=== PATIENT | male | born 1955 | race Two or more races ===

== ENCOUNTER 2018-04-12 11:13 | Inpatient (IN) | payer OTHER ==
[2018-04-12 11:42] VITALS: BMI 24.0
--- NOTE | 2018-04-12 14:11 | HP ---
CIWA Score - CIWA Score Nausea/Vomitin-Int. Nausea w/Dry Heave Muscle Tremors: 3 Anxiety: 5 Agitation: 3 Paroxysmal Sweats: 1-Minimal Palms Moist Orientation: 0-Oriented Tacttile Disturbances: 3-Moderate Itch/Numb/Burn (TOES AND FINGERS) Auditory Disturbances: 0-None Visual Disturbances: 0-None Headache: 1-Very Mild CIWA-Ar Total Score: 20 Admission ROS BHS - HPI Chief Complaint: ALCOHOL WITHDRAWAL SX Allergies/Adverse Reactions: Allergies Allergy/AdvReac Type Severity Reaction Status Date / Time No Known Allergies Allergy Verified 04/12/18 12:33 History of Present Illness: 62 Y/O MALE WITH A HX OF ALCOHOL DEPENDENCE AND RECENT USE OF K2 SEEKING DETOX TX. PT REPORTS HE WAS DISCHARGE FROM [facility] TODAY. REPORTS HIS EXECUTIVE [facility]ITY [facility]ING IN THE SKILLED NURSING CALLED AMBULANCE YESTERDAY BECAUSE HE WAS DRINKING AND USING K2 AND WAS "WOBBLY-OUT OF IT". Exam Limitations: No Limitations - Ebola screening Have you traveled outside of the country in the last 21 days: No Have you had contact with anyone from an Ebola affected area: No Have you been sick,other than usual withdrawal symptoms: No Do you have a fever: No - Review of Systems Constitutional: Chills, Loss of Appetite, Night Sweats, Changes in sleep, Unintentional Wgt. Loss EENT: reports: Blurred Vision (WEARS GLASSES), Tearing, Nose Congestion, Dental Problems (MISSING TEETH) Respiratory: reports: SOB with Exertion Cardiac: reports: Lightheadedness, Chest Tightness GI: reports: Nausea, Poor Appetite, Vomiting, Indigestion (PUD HX DUE TO DRINKING) : reports: No Symptoms Reported Musculoskeletal: reports: Back Pain (HX LAMINECTOMY) Integumentary: reports: No Symptoms Reported Neuro: reports: Headache, Numbness, Tingling, Tremors, Unsteady Gait, Dizziness Endocrine: reports: No Symptoms Reported Hematology: reports: No Symptoms Reported Psychiatric: reports: Orientated x3, Anxious Other Systems: Reviewed and Negative Patient History - Patient Medical History Hx Anemia: No Hx Asthma: No Hx Chronic Obstructive Pulmonary Disease (COPD): No Hx Cancer: No Hx Cardiac Disorders: No Hx Congestive Heart Failure: No Hx Hypertension: Yes (ON AMLODIPINE ) Hx Hypercholesterolemia: No Hx Pacemaker: No HX Cerebrovascular Accident: No Hx Seizures: No Hx Dementia: No Hx Diabetes: No Hx Gastrointestinal Disorders: Yes (acid reflux-ON MED BUT FORGOT) Hx Liver Disease: No Hx Genitourinary Disorders: No Hx Sexually Transmitted Disorders: No (DENIES) Hx Renal Disease (ESRD): No Hx Thyroid Disease: No Hx Human Immunodeficiency Virus (HIV): No (NEGATIVE HX) Hx Hepatitis C: No (DENIES) Hx Depression: Yes (ON MED) Hx Suicide Attempt: No Hx Bipolar Disorder: Yes Hx Schizophrenia: No - Patient Surgical History Past Surgical History: Yes Hx Neurologic Surgery: No Hx Cataract Extraction: No Hx Cardiac Surgery: No Hx Lung Surgery: No Hx Breast Surgery: No Hx Breast Biopsy: No Hx Abdominal Surgery: No Hx Appendectomy: No Hx Cholecystectomy: No Hx Genitourinary Surgery: No Hx Orthopedic Surgery: Yes (laminectomy in 1995) Anesthesia Reaction: No - PPD History Previous Implant?: Yes Documented Results: Negative w/proof Implanted On Prior R Admission?: Yes Date: 11/03/15 Results: 0 mm PPD to be Administered?: Yes - Reproductive History Patient is a Female of Child Bearing Age (11 -55 yrs old): No (MALE) - Smoking Cessation Smoking history: Current every day smoker Have you smoked in the past 12 months: Yes Aproximately how many cigarettes per day: 20 Hx Chewing Tobacco Use: No Initiated information on smoking cessation: Yes 'Breaking Loose' booklet given: 04/12/18 - Substance & Tx. History Hx Alcohol Use: Yes (VODKA) Hx Substance Use: Yes (PCP) Substance Use Type: Alcohol Hx Substance Use Treatment: Yes (LAST TX AT [facility]) - Substances Abused Alcohol-vodka Route: Oral Frequency: Daily Amount used: 1 pt. Age of first use: 20 Date of Last Use: 04/12/18 K2 Route: Smoking Frequency: 1-3 times last 30 days Amount used: $2 Age of first use: 62 Date of Last Use: 04/08/18 Family Disease History - Family Disease History Family Disease History: Diabetes: Mother, Sister, Heart Disease: Father ( SEIZURES,ALCOHOLISM), Other: Father Admission Physical Exam BHS - Vital Signs Vital Signs: Vital Signs - 24 hr 04/12/18 11:32 Temperature 97.2 F L Pulse Rate 118 H Respiratory 18 Rate Blood Pressure 147/89 - Physical General Appearance: Yes: Moderate Distress, Irritable, Anxious HEENTM: Yes: EOMI, Normocephalic, MIKE, Pharynx Normal Respiratory: Yes: Chest Non-Tender, Lungs Clear, Normal Breath Sounds, No Respiratory Distress Neck: Yes: No masses,lesions,Nodules, Supple, Trachea in good position Breast: Yes: Breast Exam Deferred Cardiology: Yes: Regular Rhythm, Regular Rate, S1, S2 Abdominal: Yes: Normal Bowel Sounds, Non Tender, Flat, Soft Genitourinary: Yes: Other (N/C) Back: Yes: Within Normal Limits Musculoskeletal: Yes: full range of Motion, Gait Steady Extremities: Yes: Normal Range of Motion, Non-Tender Neurological: Yes: brush polisher II-XII NML intact, Fully Oriented, Alert, Motor Strength 5/5 Integumentary: Yes: Dry, Warm Lymphatic: Yes: Within Normal Limits - Diagnostic (1) Alcohol dependence with uncomplicated withdrawal Current Visit: Yes Status: Acute (2) Nicotine dependence Current Visit: Yes Status: Acute Qualifiers: Nicotine product type: cigarettes Substance use status: in withdrawal Qualified Code(s): F17.213 - Nicotine dependence, cigarettes, with withdrawal (3) GERD (gastroesophageal reflux disease) Current Visit: Yes Status: Chronic Qualifiers: Esophagitis presence: esophagitis presence not specified Qualified Code(s) : K21.9 - Gastro-esophageal reflux disease without esophagitis (4) Hypertension Current Visit: Yes Status: Chronic Qualifiers: Hypertension type: essential hypertension Qualified Code(s): I10 - Essential (primary) hypertension Cleared for Admission S - Detox or Rehab [facility] Level of Care: Medically Managed Detox Regimen/Protocol: Librium [facility] Breath Alcohol Content Breath Alcohol Content: 0 Urine Drug Screen - Results Drug Screen Negative: No Urine Drug Screen Results: MTD-Methadone, TCA-Tricyclic Antidepress, OXY- Oxycodone
[2018-04-12] MEDS ORDERED: NICOTINE POLACRILEX 4 MG GUM BUC PRN (14:24)
[2018-04-12] MEDS ORDERED: MAGNESIUM CITRATE 300 ML BOTTLE PO PRN (14:24)
[2018-04-12] MEDS ORDERED: P-EPHED 60MG/TRIPROLIDI 2.5MG TABLET PO PRN (14:24)
[2018-04-12] MEDS ORDERED: MENTHOL/PHENOL 1 EACH UD MM PRN (14:24)
[2018-04-12] MEDS ORDERED: MAGNESIUM HYDROX 2400MG/30ML ORAL SUSPENSION 30 ML CUP PO PRN (14:24)
[2018-04-12] MEDS ORDERED: guaiFENesin/D-METHORPHAN HB 10 ML UNIT-DOSE CUPS PO PRN (14:24)
[2018-04-12] MEDS ORDERED: LOPERAMIDE HCL 2 MG CAPSULE PO PRN (14:24)
[2018-04-12] MEDS ORDERED: MAG HYDROX/AL HYDROX/SIMETH 30 ML UNIT-DOSE CUP PO PRN (14:24)
[2018-04-12] MEDS ORDERED: chlordiazePOXIDE HCL 25 MG CAPSULE PO ONE (15:10)
[2018-04-12] MEDS: PANTOPRAZOLE 40 MG TABLET (FP) PO SCH (15:56)
[2018-04-12] MEDS: amLODIPine BESYLATE 5 MG TABLET (FP) PO SCH (15:56)
[2018-04-12] MEDS: SUCRALFATE 1 GM TABLET (FP) PO SCH (15:57)
[2018-04-12] MEDS: FLUTICASONE PROP 0.05% 16 GM NASAL SPRAY NS SCH (15:57)
[2018-04-12] MEDS: NICOTINE 21 MG/24 HOURS TOPICAL PATCH TD SCH (16:01)
[2018-04-12] MEDS: chlordiazePOXIDE HCL 25 MG CAPSULE PO SCH ×2 (17:32→22:24)
[2018-04-12 19:01] LABS: HEMATOCRIT 38.1 % (35.4-49); HEMOGLOBIN 12.7 GM/dL (11.7-16.9); MCH 33.6 pg (25.7-33.7); MCHC 33.4 g/dl (32.0-35.9); MEAN CELL VOLUME 100.7 fl (80-96); MEAN PLT VOLUME 8.3 fl (7.5-11.1); PLATELET COUNT 278 K/MM3 (134-434); RBC 3.79 M/mm3 (4.00-5.60); WHITE BLOOD COUNT 6.4 K/mm3 (4.0-10.0)
[2018-04-12 19:14] LABS: ALBUMIN 3.6 g/dl (3.4-5.0); ANION GAP 14 (8-16); BLOOD UREA NITROGEN 10 mg/dL (7-18); CALCIUM 8.5 mg/dL (8.5-10.1); CHLORIDE 98 mmol/L (98-107); CO2 24 mmol/L (21-32); GLUCOSE,RANDOM 107 mg/dL (74-106); POTASSIUM 3.5 mmol/L (3.5-5.1); SGOT/AST 51 U/L (15-37); SGPT/ALT 29 U/L (12-78); SODIUM 136 mmol/L (136-145)
[2018-04-12 19:23] LABS: ALK PHOS 87 U/L (45-117); BILIRUBIN,TOTAL 1.3 mg/dL (0.2-1.0); CREATININE 0.9 mg/dL (0.7-1.3); TOT PROT 7.4 g/dl (6.4-8.2)
[2018-04-12] MEDS: chlordiazePOXIDE HCL 25 MG CAPSULE PO PRN (19:39)
[2018-04-12] MEDS: THIAMINE HCL 100 MG TABLET (FP) PO SCH (22:24)
[2018-04-12] MEDS: GABAPENTIN 400 MG CAPSULE (FP) PO SCH (22:24)
[2018-04-13] MEDS: chlordiazePOXIDE HCL 25 MG CAPSULE PO SCH ×4 (06:03→22:32)
[2018-04-13] MEDS: GABAPENTIN 400 MG CAPSULE (FP) PO SCH ×3 (06:04→22:32)
[2018-04-13] MEDS: ACETAMINOPHEN 325 MG TABLET (FP) PO PRN (10:05)
[2018-04-13] MEDS: PANTOPRAZOLE 40 MG TABLET (FP) PO SCH (10:07)
[2018-04-13] MEDS: PRENATAL VITAMINS W/ FOLIC ACID TABLET (FP) PO SCH (10:07)
[2018-04-13] MEDS: FLUTICASONE PROP 0.05% 16 GM NASAL SPRAY NS SCH (10:07)
[2018-04-13] MEDS: SUCRALFATE 1 GM TABLET (FP) PO SCH (10:07)
[2018-04-13] MEDS: amLODIPine BESYLATE 5 MG TABLET (FP) PO SCH (10:07)
[2018-04-13] MEDS: NICOTINE 21 MG/24 HOURS TOPICAL PATCH TD SCH (10:07)
--- NOTE | 2018-04-13 11:46 | PN ---
S CIWA - CIWA Score Nausea/Vomitin-No Nausea/No Vomiting Muscle Tremors: 4-Moderate,w/Arms Extend Anxiety: 4-Mod. Anxious/Guarded Agitation: 4-Moderately Restless Paroxysmal Sweats: 1-Minimal Palms Moist Orientation: 0-Oriented Tacttile Disturbances: 3-Moderate Itch/Numb/Burn Auditory Disturbances: 0-None Visual Disturbances: 0-None Headache: 0-None Present CIWA-Ar Total Score: 16 BHS Progress Note (SOAP) Subjective: SLIGHT ANXIETY,SWEATS, TREMORS. ALERT O X 3. OOB AMBULATING WITH STAEDY GAIT. NAD. Objective: 04/13/18 11:43 Vital Signs 04/13/18 04/13/18 06:44 09:13 Temperature 96.8 F L 97.1 F L Pulse Rate 76 109 H Respiratory 18 20 Rate Blood Pressure 118/77 126/91 Laboratory Tests 04/12/18 04/12/18 14:30 14:30 WBC 6.4 D RBC 3.79 L Hgb 12.7 Hct 38.1 MCV 100.7 H MCH 33.6 MCHC 33.4 RDW 14.0 D Plt Count 278 D MPV 8.3 Sodium 136 Potassium 3.5 Chloride 98 Carbon Dioxide 24 Anion Gap 14 BUN 10 D Creatinine 0.9 Creat Clearance w eGFR > 60 Random Glucose 107 H Calcium 8.5 Total Bilirubin 1.3 H D AST 51 H D ALT 29 D Alkaline Phosphatase 87 D Total Protein 7.4 Albumin 3.6 OTHER LABS PENDING Assessment: 04/13/18 11:43 WITHDRAWAL SX Plan: CONTINUE DETOX INCREASE PO FLUIDS
[2018-04-13] MEDS: chlordiazePOXIDE HCL 25 MG CAPSULE PO PRN ×2 (12:37→20:09)
[2018-04-13] MEDS: IBUPROFEN 400 MG TABLET (FP) PO PRN ×2 (12:38→20:10)
--- NOTE | 2018-04-13 12:42 | CONSULT ---
[facility] Psychiatric Consult - Data Date of interview: 04/13/18 Admission source: [facility] Identifying data: Readmission to [facility] for this 62 y/o AA male seeking detox treatment on for alcohol and cannabis (K2) dependence.Patient is single without children,homeless (resides in a nursing home),unemployed and supported on Public Asistance. Substance Abuse History: Confirmed by patient in this session.Details in current [facility] report.Smoking history: Current every day smoker. Have you smoked in the past 12 months: Yes. Aproximately how many cigarettes per day: 20. Hx Chewing Tobacco Use: No. Initiated information on smoking cessation: Yes. ' Breaking Loose' booklet given: 04/12/18. - Substance & Tx. History. Hx Alcohol Use: Yes (VODKA). Hx Substance Use: Yes (PCP). Substance Use Type: Alcohol. Hx Substance Use Treatment: Yes (LAST TX AT [facility]). - Substances Abused. Alcohol-vodka. Route: Oral. Frequency: Daily. Amount used: 1 pt. Age of first use: 20. Date of Last Use: 04/12/18. K2. Route: Smoking. Frequency: 1-3 times last 30 days. Amount used: $2. Age of first use: 62. Date of Last Use: 04/08/18 Medical History: Hypertension,GERD and a history of laminectomy. Psychiatric History: Patient endorses a history of three psychiatric hospitalizations.Known to [facility] in [facility].Diagnosed with Bipolar Disorder.Mr Prasad declares that he has stopped seeing his psychiatrist, Dr Mandujano, [facility]) in the [place].Patient aknowledges total non-adherence to his medications for " a little over a month ".Consisted of trazodone 300 mg/hs + seroquel 800 mg/hs + buspar 15 mg/bid as per self-report.Patient denies history of suicide attempts. Physical/Sexual Abuse/Trauma History: Patient denies. Additional Comment: Urine Drug Screen Results: MTD-Methadone, TCA-Tricyclic Antidepressant, OXY-Oxycodone.Noted. Mental Status Exam - Mental Status Exam Alert and Oriented to: Time, Place, Person Cognitive Function: Good Patient Appearance: Well Groomed (bald,medium height,muscular habitus) Mood: Anxious, Apprehensive Affect: Appropriate, Mood Congruent Patient Behavior: Fatigued, Appropriate, Cooperative Speech Pattern: Clear, Appropriate Voice Loudness: Normal Thought Process: Intact, Goal Oriented Thought Disorder: Not Present Hallucinations: Denies Suicidal Ideation: Denies Homicidal Ideation: Denies Insight/Judgement: Poor Sleep: Poorly, Difficulty falling asleep Appetite: Good Muscle strength/Tone: Normal Gait/Station: Normal Psychiatric Findings - Problem List ([place] 1, 2,3) (1) Alcohol dependence with uncomplicated withdrawal Current Visit: Yes Status: Acute (2) Nicotine dependence Current Visit: Yes Status: Acute Qualifiers: Nicotine product type: cigarettes Substance use status: in withdrawal Qualified Code(s): F17.213 - Nicotine dependence, cigarettes, with withdrawal (3) Bipolar disorder Current Visit: Yes Status: Chronic (4) Insomnia Current Visit: Yes Status: Acute - Initial Treatment Plan Initial Treatment Plan: Psychoeducation.Sleep hygiene.Detoxification.Contact established with the pharmacist at the [facility] at [phone] for verification of medications : last refill for seroquel and buspar were issued in 02/2017.In view of history of non-adherence, will resume medications at much reduced doses, as follows : seroquel 200 mg po hs (to be titrated on a daily basis) + buspar 10 mg po tid + trazodone 100 mg po hs.Side effects/benefits of each drug are discussed with the patient,which includes priapism,metabolic syndrome,oversedation and abnormal involuntary movements.Seroquel will be titrated as clinically indicated.Mr Prasad is in agreement with this plan of care.Observation.
--- NOTE | 2018-04-13 14:33 | EKG ---
Test Reason : Blood Pressure : / mmHG Vent. Rate : 098 BPM Atrial Rate : 098 BPM P-R Int : 152 ms QRS Dur : 100 ms QT Int : 398 ms P-R-T Axes : 068 066 057 degrees QTc Int : 508 ms NORMAL SINUS RHYTHM POSSIBLE LEFT ATRIAL ENLARGEMENT LEFT VENTRICULAR HYPERTROPHY PROLONGED QT ABNORMAL ECG NO PREVIOUS ECGS AVAILABLE Confirmed by CHRISTOPHER GARCIA MD ([id number]) on 04/13/2018 2:33:18 PM Referred By: Confirmed By:CHRISTOPHER GARCIA MD
[2018-04-13 20:45] LABS: URINE APPEARANCE CLEAR; URINE BILIRUBIN NEGATIVE (<2.0 mg/dL); URINE COLOR YELLOW; URINE GLUCOSE (UA) NEGATIVE (NEGATIVE); URINE KETONE 1+ (NEGATIVE); URINE LEUK ESTERASE NEGATIVE (NEGATIVE); URINE NITRITE NEGATIVE (NEGATIVE); URINE PROTEIN NEGATIVE (NEGATIVE); URINE UROBILINOGEN NEGATIVE mg/dL (0.2-1.0)
[2018-04-13] MEDS ORDERED: traZODone HCL 50 MG TABLET (FP) PO SCH (22:00)
[2018-04-13] MEDS: busPIRone HCL 10 MG TABLET (FP) PO SCH (22:32)
[2018-04-13] MEDS: THIAMINE HCL 100 MG TABLET (FP) PO SCH (22:32)
[2018-04-13] MEDS: traZODone HCL 100 MG TABLET (FP) PO SCH (22:32)
[2018-04-13] MEDS: QUEtiapine FUMARATE 200 MG TABLET PO SCH (22:32)
[2018-04-14] MEDS: MELATONIN 5 MG TABLETS PO PRN ×2 (00:24→22:32)
[2018-04-14] MEDS: chlordiazePOXIDE HCL 25 MG CAPSULE PO PRN ×3 (00:24→20:26)
[2018-04-14] MEDS: chlordiazePOXIDE HCL 25 MG CAPSULE PO SCH ×2 (05:16→10:10)
[2018-04-14] MEDS: GABAPENTIN 400 MG CAPSULE (FP) PO SCH ×3 (05:16→22:30)
[2018-04-14] MEDS: ACETAMINOPHEN 325 MG TABLET (FP) PO PRN ×2 (10:01→18:55)
[2018-04-14] MEDS: NICOTINE 21 MG/24 HOURS TOPICAL PATCH TD SCH (10:10)
[2018-04-14] MEDS: amLODIPine BESYLATE 5 MG TABLET (FP) PO SCH (10:10)
[2018-04-14] MEDS: SUCRALFATE 1 GM TABLET (FP) PO SCH (10:10)
[2018-04-14] MEDS: PRENATAL VITAMINS W/ FOLIC ACID TABLET (FP) PO SCH (10:10)
[2018-04-14] MEDS: FLUTICASONE PROP 0.05% 16 GM NASAL SPRAY NS SCH (10:10)
[2018-04-14] MEDS: busPIRone HCL 10 MG TABLET (FP) PO SCH ×2 (10:10→22:30)
[2018-04-14] MEDS: PANTOPRAZOLE 40 MG TABLET (FP) PO SCH (10:10)
[2018-04-14] MEDS ORDERED: ONDANSETRON *ODT* 4 MG TABLET SL PRN (11:33)
[2018-04-14] MEDS: IBUPROFEN 400 MG TABLET (FP) PO PRN ×2 (13:12→23:03)
--- NOTE | 2018-04-14 15:15 | PN ---
S CIWA - CIWA Score Nausea/Vomitin-No Nausea/No Vomiting Muscle Tremors: 3 Anxiety: 4-Mod. Anxious/Guarded Agitation: 4-Moderately Restless Paroxysmal Sweats: 3 Orientation: 2-Disoriented Date<2 days Tacttile Disturbances: 0-None Auditory Disturbances: 0-None Visual Disturbances: 0-None Headache: 3-Moderate CIWA-Ar Total Score: 19 BHS Progress Note (SOAP) Subjective: Tremors, Interrupted Sleep, Sweating, H/A, Body Aches. Objective: PATIENT A & O X 2 (UNCERTAIN ABOUT CURRENT DAY / DATE). PATIENT OBSERVED AMBULATING ON UNIT. NO ACUTE DISTRESS. PATIENT DENIES CHEST PAIN, DIZZINESS, AND SOB. PATIENT REPORTS HISTORY ECG ABNORMALITY; HOWEVER, HE DOES NOT RECALL SPECIFIC DETAILS PERTAINING TO ABNORMALITY. 04/14/18 15:17 Vital Signs Temperature 96.9 F L 04/14/18 13:24 Pulse Rate 82 04/14/18 13:24 Respiratory Rate 20 04/14/18 13:24 Blood Pressure 120/84 04/14/18 13:24 O2 Sat by Pulse Oximetry (%) Laboratory Tests 04/12/18 04/12/18 04/12/18 14:30 14:30 14:30 WBC 6.4 D RBC 3.79 L Hgb 12.7 Hct 38.1 MCV 100.7 H MCH 33.6 MCHC 33.4 RDW 14.0 D Plt Count 278 D MPV 8.3 Sodium 136 Potassium 3.5 Chloride 98 Carbon Dioxide 24 Anion Gap 14 BUN 10 D Creatinine 0.9 Creat Clearance w eGFR > 60 Random Glucose 107 H Calcium 8.5 Total Bilirubin 1.3 H D AST 51 H D ALT 29 D Alkaline Phosphatase 87 D Total Protein 7.4 Albumin 3.6 Urine Color Urine Appearance Urine pH Ur Specific [place] Urine Protein Urine Glucose (UA) Urine Ketones Urine Blood Urine Nitrite Urine Bilirubin Urine Urobilinogen Ur Leukocyte Esterase RPR Titer Nonreactive 04/12/18 16:00 WBC RBC Hgb Hct MCV MCH MCHC RDW Plt Count MPV Sodium Potassium Chloride Carbon Dioxide Anion Gap BUN Creatinine Creat Clearance w eGFR Random Glucose Calcium Total Bilirubin AST ALT Alkaline Phosphatase Total Protein Albumin Urine Color Yellow Urine Appearance Clear Urine pH 6.0 Ur Specific [place] 1.014 Urine Protein Negative Urine Glucose (UA) Negative Urine Ketones 1+ H Urine Blood Negative Urine Nitrite Negative Urine Bilirubin Negative Urine Urobilinogen Negative Ur Leukocyte Esterase Negative RPR Titer LABS NOTED. RESULTS OF ADMISSION AND REPEAT ECG'S NOTED. 04/14/18 15:18 04/14/18 15:20 Assessment: 04/14/18 15:17 WITHDRAWAL SYMPTOMS. Plan: CONTINUE DETOX. PRN ZOFRAN SL FOR NAUSEA.
--- NOTE | 2018-04-14 16:34 | EKG ---
Test Reason : Blood Pressure : / mmHG Vent. Rate : 096 BPM Atrial Rate : 096 BPM P-R Int : 156 ms QRS Dur : 102 ms QT Int : 410 ms P-R-T Axes : 032 066 048 degrees QTc Int : 517 ms SINUS RHYTHM WITH OCCASIONAL PREMATURE VENTRICULAR COMPLEXES LEFT VENTRICULAR HYPERTROPHY WITH REPOLARIZATION ABNORMALITY PROLONGED QT ABNORMAL ECG WHEN COMPARED WITH ECG OF 12-APR-2018 16:33, PREMATURE VENTRICULAR COMPLEXES ARE NOW PRESENT Confirmed by ARMAND VARGAS, MARK ([id number]) on 04/14/2018 4:34:22 PM Referred By: Confirmed By:MARK ACUNA MD
[2018-04-14] MEDS: chlordiazePOXIDE 5 MG CAPSULE PO SCH ×2 (17:28→22:31)
[2018-04-14] MEDS: QUEtiapine FUMARATE 200 MG TABLET PO SCH (22:30)
[2018-04-14] MEDS: traZODone HCL 100 MG TABLET (FP) PO SCH (22:30)
[2018-04-14] MEDS: THIAMINE HCL 100 MG TABLET (FP) PO SCH (22:42)
[2018-04-14] MEDS ORDERED: hydrOXYzine PAMOATE 25 MG CAPSULE (FP) PO ONE (23:00)
[2018-04-15] MEDS: ACETAMINOPHEN 325 MG TABLET (FP) PO PRN ×2 (01:51→14:56)
[2018-04-15] MEDS: chlordiazePOXIDE HCL 25 MG CAPSULE PO PRN (01:53)
[2018-04-15] MEDS: chlordiazePOXIDE 5 MG CAPSULE PO SCH ×2 (06:11→10:03)
[2018-04-15] MEDS: GABAPENTIN 400 MG CAPSULE (FP) PO SCH ×3 (06:11→22:17)
[2018-04-15] MEDS: SUCRALFATE 1 GM TABLET (FP) PO SCH (09:42)
[2018-04-15] MEDS: NICOTINE 21 MG/24 HOURS TOPICAL PATCH TD SCH (09:42)
[2018-04-15] MEDS: FLUTICASONE PROP 0.05% 16 GM NASAL SPRAY NS SCH (09:42)
[2018-04-15] MEDS: CYCLOBENZAPRINE HCL 10 MG TABLET (FP) PO PRN ×2 (09:43→18:23)
[2018-04-15] MEDS: amLODIPine BESYLATE 5 MG TABLET (FP) PO SCH (09:43)
[2018-04-15] MEDS: PRENATAL VITAMINS W/ FOLIC ACID TABLET (FP) PO SCH (09:43)
[2018-04-15] MEDS: busPIRone HCL 10 MG TABLET (FP) PO SCH ×2 (09:43→22:17)
[2018-04-15] MEDS: PANTOPRAZOLE 40 MG TABLET (FP) PO SCH (09:43)
[2018-04-15] MEDS: LIDOCAINE VISCOUS 2% ORAL/TOP 20 ML UNIT-DOSE CUP MM PRN ×2 (09:47→20:34)
[2018-04-15] MEDS ORDERED: QUEtiapine FUMARATE 50 MG TABLET PO ONE (11:05)
--- NOTE | 2018-04-15 16:57 | PN ---
BHS Progress Note (SOAP) Subjective: Stomach Cramping, Nausea, H/A, Body Aches, Interrupted Sleep, Anxious. Objective: PATIENT A & O X 3, OBSERVED AMBULATING ON UNIT. NO ACUTE DISTRESS. 04/15/18 16:56 Vital Signs Temperature 96.2 F L 04/15/18 13:58 Pulse Rate 87 04/15/18 13:58 Respiratory Rate 20 04/15/18 13:58 Blood Pressure 110/75 04/15/18 13:58 O2 Sat by Pulse Oximetry (%) Laboratory Tests 04/12/18 04/12/18 04/12/18 14:30 14:30 14:30 WBC 6.4 D RBC 3.79 L Hgb 12.7 Hct 38.1 MCV 100.7 H MCH 33.6 MCHC 33.4 RDW 14.0 D Plt Count 278 D MPV 8.3 Sodium 136 Potassium 3.5 Chloride 98 Carbon Dioxide 24 Anion Gap 14 BUN 10 D Creatinine 0.9 Creat Clearance w eGFR > 60 Random Glucose 107 H Calcium 8.5 Total Bilirubin 1.3 H D AST 51 H D ALT 29 D Alkaline Phosphatase 87 D Total Protein 7.4 Albumin 3.6 Urine Color Urine Appearance Urine pH Ur Specific [place] Urine Protein Urine Glucose (UA) Urine Ketones Urine Blood Urine Nitrite Urine Bilirubin Urine Urobilinogen Ur Leukocyte Esterase RPR Titer Nonreactive 04/12/18 16:00 WBC RBC Hgb Hct MCV MCH MCHC RDW Plt Count MPV Sodium Potassium Chloride Carbon Dioxide Anion Gap BUN Creatinine Creat Clearance w eGFR Random Glucose Calcium Total Bilirubin AST ALT Alkaline Phosphatase Total Protein Albumin Urine Color Yellow Urine Appearance Clear Urine pH 6.0 Ur Specific [place] 1.014 Urine Protein Negative Urine Glucose (UA) Negative Urine Ketones 1+ H Urine Blood Negative Urine Nitrite Negative Urine Bilirubin Negative Urine Urobilinogen Negative Ur Leukocyte Esterase Negative RPR Titer LABS NOTED. Assessment: 04/15/18 16:57 WITHDRAWAL SYMPTOMS. Plan: CONTINUE DETOX.
[2018-04-15] MEDS: chlordiazePOXIDE HCL 10 MG CAPSULE PO SCH ×2 (17:20→22:17)
--- NOTE | 2018-04-15 17:28 | PN ---
Psychiatric Progress Note Vital Signs: Vital Signs Period Temp Pulse Resp BP Sys/Grimm Pulse Ox Last 24 Hr 96.2 F-98.3 F 71-95 16-20 95-138/68-89 Date of Session: 04/15/18 Chief Complaint:: " I cannot sleep at night.I need more seroquel ". HPI: Day 4 of detoxification for alcohol dependence.Psychiatric re-consult is sought to address patient's request for titration of seroquel to a higher dose.Complains of refractory insomnia. ROS: Unremarkable. Current Medications: Active Medications Generic Name Dose Route Start Last Admin Trade Name Freq PRN Reason Stop Dose Admin Acetaminophen 650 mg 04/12/18 14:24 04/15/18 14:56 Tylenol - PO 650 mg Q4H PRN Administration FEVER Al Hydroxide/Mg Hydroxide 30 ml 04/12/18 14:24 Mylanta Oral Suspension - PO Q6H PRN DYSPEPSIA Amlodipine Besylate 5 mg 04/12/18 15:00 04/15/18 09:43 Norvasc - PO 5 mg DAILY DON Administration Buspirone HCl 10 mg 04/13/18 22:00 04/15/18 09:43 Buspar - PO 10 mg BID DON Administration Chlordiazepoxide HCl 10 mg 04/15/18 17:00 Librium - PO 04/16/18 11:01 [id number] DON Cyclobenzaprine HCl 10 mg 04/15/18 09:27 04/15/18 09:43 Flexeril - PO 10 mg TID PRN Administration MUSCLE SPASMS Eucalyptus/Menthol/Phenol/Sorbitol 1 each 04/12/18 14:24 Cepastat Lozenge - MM Q4H PRN SORE THROAT Fluticasone Propionate 1 spray 04/12/18 15:00 04/15/18 09:42 Flonase - NS 1 spr DAILY DON Administration Gabapentin 800 mg 04/12/18 22:00 04/15/18 13:45 Neurontin - PO 800 mg TID DON Administration Guaifenesin 10 ml 04/12/18 14:24 Robitussin Dm - PO Q6H PRN COUGH Ibuprofen 400 mg 04/12/18 14:24 04/14/18 23:03 Motrin - PO 400 mg Q6H PRN Administration PAIN LEVEL 4-6 Lidocaine HCl 20 ml 04/15/18 09:27 04/15/18 09:47 Xylocaine 2% Viscous Oral - MM 20 ml TID PRN Administration ORAL PAIN/[place]OR[place] Loperamide HCl 4 mg 04/12/18 14:24 Imodium - PO Q6H PRN DIARRHEA Magnesium Citrate 300 ml 04/12/18 14:24 Citroma - PO Q48H PRN CONSTIPATION Magnesium Hydroxide 30 ml 04/12/18 14:24 Milk Of Magnesia - PO DAILY PRN CONSTIPATION Melatonin 5 mg 04/12/18 22:00 04/14/18 22:32 Melatonin PO 5 mg HS PRN Administration INSOMNIA Nicotine 21 mg 04/12/18 15:10 04/15/18 09:42 Nicoderm Patch - TD 21 mg DAILY DON Administration Nicotine Polacrilex 4 mg 04/12/18 14:24 Nicorette Gum - BUC Q2H PRN NICOTINE REPLACEMENT RX Ondansetron HCl 4 mg 04/14/18 11:33 Zofran Odt - SL Q8H PRN NAUSEA AND/OR VOMITING Pantoprazole Sodium 40 mg 04/12/18 15:00 04/15/18 09:43 Protonix - PO 40 mg DAILY DON Administration Multivit/Folic Acid/Iron 1 tab 04/13/18 10:00 04/15/18 09:43 Vitamins (Sjr) - PO 1 tab DAILY DON Administration Pseudoephedrine/Triprolidine 1 combo 04/12/18 14:24 Actifed - PO TID PRN NASAL CONGESTION Quetiapine Fumarate 300 mg 04/15/18 22:00 Seroquel - PO HS DON Sucralfate 1 gm 04/12/18 15:10 04/15/18 09:42 Carafate - PO 1 gm DAILY DON Administration Thiamine HCl 100 mg 04/12/18 22:00 04/14/18 22:42 Vitamin B1 - PO 100 mg HS DON Administration Trazodone HCl 150 mg 04/15/18 22:00 Desyrel - PO HS DON Zolpidem Tartrate 5 mg 04/15/18 22:00 Ambien - PO 04/18/18 21:59 HS PRN INSOMNIA Medication(s) Change(s): Changes : trazodone raised to 150 mg po hs + seroquel is now at 300 mg po hs.Discussed with the patient.Side effects/benefits of both drugs are discussed.Mr Prasad agrees to this careplan. Current Side Effect: No Lab tests ordered: No Lab tests reviewed: Yes Provider note:: Met with patient.Medical student in attendance.Medications reviewed with the patient.Principles of sleep hygiene are revisited.Mr Prasad is informed of the plan to keep seroquel at 300 mg/hs (not 800 mg) in view of enduring,chronic non-adherence to his medications.He is encouraged to resume contact with his OPD psychiatrist, Dr Mandujano.mental status remains stable.Patient is at his baseline. Total face to face time:: 35 Mental Status Exam - Mental Status Exam Alert and Oriented to: Time, Place, Person Cognitive Function: Good Patient Appearance: Well Groomed Mood: Apprehensive Affect: Normal Range Patient Behavior: Cooperative (medication-seeking) Speech Pattern: Clear, Appropriate Voice Loudness: Normal Thought Process: Goal Oriented Thought Disorder: Not Present Hallucinations: Denies Suicidal Ideation: Denies Homicidal Ideation: Denies Insight/Judgement: Poor Sleep: Poorly, Difficulty falling asleep Appetite: Good Muscle strength/Tone: Normal Gait/Station: Normal Psychiatric Treatment Plan - Problem List (1) Alcohol dependence with uncomplicated withdrawal Comment: . (2) Nicotine dependence Qualifiers: Nicotine product type: cigarettes Substance use status: in withdrawal Qualified Code(s): F17.213 - Nicotine dependence, cigarettes, with withdrawal Comment: . (3) Bipolar disorder Qualifiers: Active/Remission status: remission status unspecified Qualified Code(s): F31.9 - Bipolar disorder, unspecified Comment: . (4) Insomnia Qualifiers: Insomnia type: unspecified Qualified Code(s): G47.00 - Insomnia, unspecified Comment: .
[2018-04-15] MEDS ORDERED: ZOLPIDEM TARTRATE 5 MG TABLET PO PRN (22:00)
[2018-04-15] MEDS ORDERED: traZODone HCL 50 MG TABLET (FP) PO SCH (22:00)
[2018-04-15] MEDS ORDERED: QUEtiapine FUMARATE 300 MG TABLET PO SCH (22:00)
[2018-04-15] MEDS: THIAMINE HCL 100 MG TABLET (FP) PO SCH (22:17)
[2018-04-15] MEDS: IBUPROFEN 400 MG TABLET (FP) PO PRN (23:52)
[2018-04-16 06:13] VITALS: BP 98/62; PULSE 96; TEMP 97.5
[2018-04-16] MEDS: chlordiazePOXIDE HCL 10 MG CAPSULE PO SCH ×2 (06:14→10:15)
[2018-04-16] MEDS: GABAPENTIN 400 MG CAPSULE (FP) PO SCH (07:00)
[2018-04-16] MEDS: FLUTICASONE PROP 0.05% 16 GM NASAL SPRAY NS SCH (09:43)
[2018-04-16] MEDS: busPIRone HCL 10 MG TABLET (FP) PO SCH (09:43)
[2018-04-16] MEDS: PRENATAL VITAMINS W/ FOLIC ACID TABLET (FP) PO SCH (09:43)
[2018-04-16] MEDS: amLODIPine BESYLATE 5 MG TABLET (FP) PO SCH (09:43)
[2018-04-16] MEDS: SUCRALFATE 1 GM TABLET (FP) PO SCH (10:15)
[2018-04-16] MEDS: NICOTINE 21 MG/24 HOURS TOPICAL PATCH TD SCH (10:15)
[2018-04-16] MEDS: PANTOPRAZOLE 40 MG TABLET (FP) PO SCH (10:15)
--- NOTE | 2018-04-16 17:23 | DS ---
[facility] Detox Discharge Summary Admission Date: 04/12/18 Discharge Date: 04/16/18 - History Present History: Alcohol Dependence Additional Comments: PATIENT GOING HOME FOR A FEW HOURS TO ATTEND TO PERSONAL AFFAIRS, THEN WILL RETURN LATER IN DAY TO APPLY FOR ADMISSION TO [facility] ([place]). PATIENT WAS DISCHARGED FROM DETOX UNIT IN STABLE MEDICAL CONDITION. Pertinent Past History: GERD, HTN, Nicotine Dependence, Depression, Bipolar Disorder. - Physical Exam Results Vital Signs: Vital Signs Temperature 97.5 F L 04/16/18 06:12 Pulse Rate 96 H 04/16/18 06:12 Respiratory Rate 20 04/16/18 06:12 Blood Pressure 98/62 04/16/18 06:12 O2 Sat by Pulse Oximetry (%) Pertinent Admission Physical Exam Findings: WITHDRAWAL SYMPTOMS. Laboratory Tests 04/12/18 04/12/18 04/12/18 14:30 14:30 14:30 WBC 6.4 D RBC 3.79 L Hgb 12.7 Hct 38.1 MCV 100.7 H MCH 33.6 MCHC 33.4 RDW 14.0 D Plt Count 278 D MPV 8.3 Sodium 136 Potassium 3.5 Chloride 98 Carbon Dioxide 24 Anion Gap 14 BUN 10 D Creatinine 0.9 Creat Clearance w eGFR > 60 Random Glucose 107 H Calcium 8.5 Total Bilirubin 1.3 H D AST 51 H D ALT 29 D Alkaline Phosphatase 87 D Total Protein 7.4 Albumin 3.6 Urine Color Urine Appearance Urine pH Ur Specific [place] Urine Protein Urine Glucose (UA) Urine Ketones Urine Blood Urine Nitrite Urine Bilirubin Urine Urobilinogen Ur Leukocyte Esterase RPR Titer Nonreactive 04/12/18 16:00 WBC RBC Hgb Hct MCV MCH MCHC RDW Plt Count MPV Sodium Potassium Chloride Carbon Dioxide Anion Gap BUN Creatinine Creat Clearance w eGFR Random Glucose Calcium Total Bilirubin AST ALT Alkaline Phosphatase Total Protein Albumin Urine Color Yellow Urine Appearance Clear Urine pH 6.0 Ur Specific [place] 1.014 Urine Protein Negative Urine Glucose (UA) Negative Urine Ketones 1+ H Urine Blood Negative Urine Nitrite Negative Urine Bilirubin Negative Urine Urobilinogen Negative Ur Leukocyte Esterase Negative RPR Titer LABS NOTED. - Treatment Hospital Course: Detox Protocol Followed, Detoxed Safely, Responded well, Discharged Condition Good, Rehab Referral Accepted Patient has Accepted a Rehab Referral to[facility] ([place]) . - Medication Discharge Medications: Ambulatory Orders Quetiapine Fumarate "Xr" [Seroquel XR] 800 mg PO HS #60 tablet 02/15/16 traZODone HCL [Desyrel -] 300 mg PO HS #60 tablet 02/15/16 Buspirone HCl [Buspar -] 30 mg PO BID 04/12/18 Fluticasone Prop 0.05% Nasal [Flonase -] 1 spray NS DAILY 04/12/18 Folic Acid - 1 mg PO DAILY 04/12/18 Gabapentin [Neurontin -] 800 mg PO TID 04/12/18 [place] Carbonate [Eskalith -] 150 mg PO QID 04/12/18 Mirtazapine [Remeron [DO NOT STOCK]] 45 mg PO HS 04/12/18 Pantoprazole Sodium [Protonix -] 40 mg PO BID 04/12/18 Sucralfate [Carafate -] 1 gm PO DAILY 04/12/18 Thiamine HCl [Vitamin B-1] 100 mg PO DAILY 04/12/18 Quetiapine Fumarate [Seroquel -] 300 mg PO HS #30 tab 04/15/18 Trazodone HCl 150 mg PO HS #30 tablet 04/15/18 Amlodipine Besylate [Norvasc -] 5 mg PO DAILY #30 tablet 04/16/18 - Diagnosis (1) Alcohol dependence with uncomplicated withdrawal Status: Acute (2) Nicotine dependence Status: Acute Qualifiers: Nicotine product type: cigarettes Substance use status: in withdrawal Qualified Code(s): F17.213 - Nicotine dependence, cigarettes, with withdrawal (3) GERD (gastroesophageal reflux disease) Status: Chronic Qualifiers: Esophagitis presence: esophagitis presence not specified Qualified Code(s) : K21.9 - Gastro-esophageal reflux disease without esophagitis (4) Hypertension Status: Chronic Qualifiers: Hypertension type: essential hypertension Qualified Code(s): I10 - Essential (primary) hypertension (5) Insomnia Status: Acute Qualifiers: Insomnia type: unspecified Qualified Code(s): G47.00 - Insomnia, unspecified (6) Bipolar disorder Status: Chronic Qualifiers: Active/Remission status: remission status unspecified Qualified Code(s): F31.9 - Bipolar disorder, unspecified - AMA Did Patient Leave Against Medical Advice: No
--- NOTE | 2018-04-16 17:23 | PN ---
[facility] Progress Note (SOAP) Subjective: Patient denies current Detox symptoms and reports that he feels well overall. Objective: PATIENT A & O X 3, OBSERVED AMBULATING ON UNIT. NO ACUTE DISTRESS. 04/16/18 17:21 Vital Signs Temperature 97.5 F L 04/16/18 06:12 Pulse Rate 96 H 04/16/18 06:12 Respiratory Rate 20 04/16/18 06:12 Blood Pressure 98/62 04/16/18 06:12 O2 Sat by Pulse Oximetry (%) Laboratory Tests 04/12/18 04/12/18 04/12/18 14:30 14:30 14:30 WBC 6.4 D RBC 3.79 L Hgb 12.7 Hct 38.1 MCV 100.7 H MCH 33.6 MCHC 33.4 RDW 14.0 D Plt Count 278 D MPV 8.3 Sodium 136 Potassium 3.5 Chloride 98 Carbon Dioxide 24 Anion Gap 14 BUN 10 D Creatinine 0.9 Creat Clearance w eGFR > 60 Random Glucose 107 H Calcium 8.5 Total Bilirubin 1.3 H D AST 51 H D ALT 29 D Alkaline Phosphatase 87 D Total Protein 7.4 Albumin 3.6 Urine Color Urine Appearance Urine pH Ur Specific [place] Urine Protein Urine Glucose (UA) Urine Ketones Urine Blood Urine Nitrite Urine Bilirubin Urine Urobilinogen Ur Leukocyte Esterase RPR Titer Nonreactive 04/12/18 16:00 WBC RBC Hgb Hct MCV MCH MCHC RDW Plt Count MPV Sodium Potassium Chloride Carbon Dioxide Anion Gap BUN Creatinine Creat Clearance w eGFR Random Glucose Calcium Total Bilirubin AST ALT Alkaline Phosphatase Total Protein Albumin Urine Color Yellow Urine Appearance Clear Urine pH 6.0 Ur Specific [place] 1.014 Urine Protein Negative Urine Glucose (UA) Negative Urine Ketones 1+ H Urine Blood Negative Urine Nitrite Negative Urine Bilirubin Negative Urine Urobilinogen Negative Ur Leukocyte Esterase Negative RPR Titer labs noted. Assessment: 04/16/18 17:22 COMPLETION OF DETOX REGIMEN. 04/16/18 17:22 Plan: PATIENT SCHEDULED FOR DISCHARGE FORM DETOX UNIT TODAY.
== END 2018-04-16 09:50 | disposition home or self-care (01) | DRG 897 ==
LOC: YASAS 11:13 → Y3N 14:57
PROVIDERS: ADMIT Internal Medicine; ATTEND Internal Medicine
PROC: HZ2ZZZZ Detoxification Services for Substance Abuse Treatment (ICD-10-PCS; principal; 2018-04-12)
DX: F10.230 Alcohol dependence with withdrawal, uncomplicated (principal); F17.213 Nicotine dependence, cigarettes, with withdrawal; F31.9 Bipolar disorder, unspecified; I10 Essential (primary) hypertension; K21.9 Gastro-esophageal reflux disease without esophagitis; G47.00 Insomnia, unspecified
CPT/HCPCS: 36415; 80053; 81003; 85027; 86593; 93005; 93010

== ENCOUNTER 2018-10-07 12:37 | Inpatient (IN) | payer OTHER ==
[2018-10-07 12:49] VITALS: BMI 29.7
--- NOTE | 2018-10-07 14:39 | HP ---
CIWA Score - Admission Criteria [facility] Guidelines: Admission for Medically Managed Detox: Requires at least one of the followin. CIWA greater than 12 2. Seizures within the past 24 hours 3. Delirium tremens within the past 24 hours 4. Hallucinations within the past 24 hours 5. Acute intervention needed for co occurring medical disorder 6. Acute intervention needed for co occurring psychiatric disorder 7. Severe withdrawal that cannot be handled at a lower level of care (continued vomiting, continued diarrhea, abnormal vital signs) requiring intravenous medication and/or fluids 8. Admission ROS S - HPI Chief Complaint: i am here for rehab from alcohol Allergies/Adverse Reactions: Allergies Allergy/AdvReac Type Severity Reaction Status Date / Time No Known Allergies Allergy Verified 10/07/18 13:29 History of Present Illness: this 63 years old male with alcohol dependence,seeking rehab from alcohol,last treatment [facility] 04/12/18 to 04/16/18 history of hypertension, s/p laminectomy in 1995 pending on fusion depression.insomnia weight loss gerd nicotine dependence low back pain with sciatica longest period of sobriety 1 abd a half year Exam Limitations: No Limitations - Ebola screening Have you traveled outside of the country in the last 21 days: No Have you been sick,other than usual withdrawal symptoms: No - Review of Systems Constitutional: No Symptoms Reported EENT: reports: No Symptoms Reported Respiratory: reports: No Symptoms reported Cardiac: reports: No Symptoms Reported GI: reports: No Symptoms Reported : reports: No Symptoms Reported Musculoskeletal: reports: No Symptoms Reported Integumentary: reports: No Symptoms Reported Neuro: reports: No Symptoms reported Endocrine: reports: No Symptoms Reported Hematology: reports: No Symptoms Reported Psychiatric: reports: No Sypmtoms Reported, Judgement Intact, Mood/Affect Appropiate, Orientated x3 (insomnia), Depressed Patient History - Patient Medical History Hx Anemia: No Hx Asthma: No Hx Chronic Obstructive Pulmonary Disease (COPD): No Hx Cancer: No Hx Cardiac Disorders: No Hx Congestive Heart Failure: No Hx Hypertension: Yes (on mned) Hx Hypercholesterolemia: No Hx Pacemaker: No HX Cerebrovascular Accident: No Hx Seizures: No Hx Dementia: No Hx Diabetes: No Hx Gastrointestinal Disorders: Yes (gastric ulcer/acid reflux) Hx Liver Disease: No Hx Genitourinary Disorders: No Hx Sexually Transmitted Disorders: No Hx Renal Disease (ESRD): No Hx Thyroid Disease: No Hx Human Immunodeficiency Virus (HIV): No (NEGATIVE HX last 08/09 ) Hx Hepatitis C: No (DENIES) Hx Depression: Yes (on med) Hx Suicide Attempt: No Hx Bipolar Disorder: Yes Hx Schizophrenia: No Other Medical History: no suicidal,no homicidal,low back pain,sciatica - Patient Surgical History Past Surgical History: Yes Hx Neurologic Surgery: No Hx Cataract Extraction: No Hx Cardiac Surgery: No Hx Lung Surgery: No Hx Breast Surgery: No Hx Breast Biopsy: No Hx Abdominal Surgery: No Hx Appendectomy: No Hx Cholecystectomy: No Hx Genitourinary Surgery: No Hx Section: No Hx Orthopedic Surgery: Yes (laminectomy in 1995) Other Surgical History: right inguinal hernia repair in 1975 Anesthesia Reaction: No - PPD History Previous Implant?: Yes Date: 04/14/18 Results: 0 mm PPD to be Administered?: No - Smoking Cessation Smoking history: Current every day smoker Have you smoked in the past 12 months: Yes Aproximately how many cigarettes per day: 20 Hx Chewing Tobacco Use: No Initiated information on smoking cessation: Yes 'Breaking Loose' booklet given: 10/07/18 - Substance & Tx. History Hx Alcohol Use: Yes Hx Substance Use: No Substance Use Type: Alcohol Hx Substance Use Treatment: Yes (04/12/18 to 04/16/18 [facility]) - Substances Abused Alcohol-vodka Route: Oral Frequency: Daily Amount used: 2 pts. Age of first use: 21 Date of Last Use: 09/03/18 Family Disease History - Family Disease History Family Disease History: Diabetes: Mother, Sister, Heart Disease: Father ( SEIZURES,ALCOHOLISM), Other: Father Admission Physical Exam S - Vital Signs Vital Signs: Vital Signs - 24 hr 10/07/18 12:40 Temperature 96.9 F L Pulse Rate 108 H Respiratory 18 Rate Blood Pressure 131/90 - Physical General Appearance: Yes: Within Normal Limits HEENTM: Yes: Within Normal Limits, MIKE, Pharynx Normal Respiratory: Yes: Lungs Clear, Normal Breath Sounds, No Respiratory Distress Neck: Yes: Within Normal Limits, Supple, Trachea in good position Breast: Yes: Within Normal Limits Cardiology: Yes: Within Normal Limits, Regular Rhythm, Regular Rate, S1, S2 Abdominal: Yes: Within Normal Limits, Normal Bowel Sounds, Non Tender, Soft Genitourinary: Yes: Within Normal Limits Back: Yes: Within Normal Limits Musculoskeletal: Yes: Within Normal Limits, full range of Motion, Back pain, Other (s/p laminectomy) Extremities: Yes: Within Normal Limits Neurological: Yes: international trade analyst II-XII NML intact, Fully Oriented, Alert, Motor Strength 5/5 Integumentary: Yes: Within Normal Limits Lymphatic: Yes: Within Normal Limits - Diagnostic (1) Alcohol dependence Current Visit: Yes Status: Acute (2) Insomnia Current Visit: No Status: Acute Qualifiers: Insomnia type: unspecified Qualified Code(s): G47.00 - Insomnia, unspecified Comment: . (3) Nicotine dependence Current Visit: No Status: Chronic Qualifiers: Nicotine product type: cigarettes Substance use status: in withdrawal Qualified Code(s): F17.213 - Nicotine dependence, cigarettes, with withdrawal Comment: . (4) GERD (gastroesophageal reflux disease) Current Visit: No Status: Chronic Qualifiers: Esophagitis presence: esophagitis presence not specified Qualified Code(s) : K21.9 - Gastro-esophageal reflux disease without esophagitis (5) Hypertension Current Visit: No Status: Chronic Qualifiers: Hypertension type: essential hypertension Qualified Code(s): I10 - Essential (primary) hypertension (6) Low back pain Current Visit: Yes Status: Acute (7) Sciatica, left side Current Visit: Yes Status: Acute (8) Bipolar disorder Current Visit: Yes Status: Chronic Cleared for Admission [facility] - Detox or Rehab Claeared for Rehab Admission: Yes [facility] Breath Alcohol Content Breath Alcohol Content: 0 Urine Drug Screen - Results Drug Screen Negative: No Urine Drug Screen Results: BZO-Benzodiazepines Inpatient Rehab Admission - Initial Determination Are CD services needed?: Yes Free of communicable disease: Yes Not in need of hospitalization: Yes - Rehab Admission Criteria Previous failed treatment: Yes Poor recovery environment: Yes Comorbidities: Yes Lacks judgement: No Patient is meeting Inpatient Rehab admission criteria:: Yes
[2018-10-07] MEDS ORDERED: IBUPROFEN 400 MG TABLET (FP) PO PRN (14:56)
[2018-10-07] MEDS ORDERED: MAG HYDROX/AL HYDROX/SIMETH 30 ML UNIT-DOSE CUP PO PRN (14:56)
[2018-10-07] MEDS ORDERED: LOPERAMIDE HCL 2 MG CAPSULE PO PRN (14:56)
[2018-10-07] MEDS ORDERED: P-EPHED 60MG/TRIPROLIDI 2.5MG TABLET PO PRN (14:56)
[2018-10-07] MEDS ORDERED: MAGNESIUM HYDROX 2400MG/30ML ORAL SUSPENSION 30 ML CUP PO PRN (14:56)
[2018-10-07] MEDS ORDERED: MAGNESIUM CITRATE 300 ML BOTTLE PO PRN (14:56)
[2018-10-07] MEDS: NICOTINE 21 MG/24 HOURS TOPICAL PATCH TD SCH (17:22)
[2018-10-07] MEDS: GABAPENTIN 400 MG CAPSULE (FP) PO SCH (22:24)
[2018-10-07] MEDS: THIAMINE HCL 100 MG TABLET (FP) PO SCH (22:24)
[2018-10-07] MEDS: DOCUSATE SODIUM 100 MG CAPSULE (FP) PO SCH (22:25)
[2018-10-07] MEDS: SENNOSIDES 8.6MG TABLET (FP) PO SCH (22:25)
[2018-10-07] MEDS: NON-FORMULARY MED TP SCH (22:26)
[2018-10-07] MEDS: hydrOXYzine PAMOATE 50 MG CAPSULE (FP) PO PRN (22:27)
[2018-10-07] MEDS: MELATONIN 5 MG TABLETS PO PRN (22:27)
[2018-10-07] MEDS: SUCRALFATE 1 GM TABLET (FP) PO SCH (22:59)
[2018-10-08 01:27] LABS: URINE APPEARANCE CLEAR; URINE BILIRUBIN NEGATIVE (<2.0 mg/dL); URINE COLOR LTYELLOW; URINE GLUCOSE (UA) NEGATIVE (NEGATIVE); URINE KETONE TRACE (NEGATIVE); URINE LEUK ESTERASE NEGATIVE (NEGATIVE); URINE NITRITE NEGATIVE (NEGATIVE); URINE PROTEIN NEGATIVE (NEGATIVE); URINE UROBILINOGEN NEGATIVE mg/dL (0.2-1.0)
[2018-10-08] MEDS: DOCUSATE SODIUM 100 MG CAPSULE (FP) PO SCH ×3 (06:26→22:58)
[2018-10-08] MEDS: GABAPENTIN 400 MG CAPSULE (FP) PO SCH ×3 (06:26→22:53)
[2018-10-08] MEDS: SUCRALFATE 1 GM TABLET (FP) PO SCH ×4 (06:26→22:53)
[2018-10-08] MEDS: hydrOXYzine PAMOATE 50 MG CAPSULE (FP) PO PRN (07:44)
[2018-10-08] MEDS ORDERED: PT OWN MED DRAWER 7, Y5N ONE ×3 (08:54→22:58)
[2018-10-08] MEDS: PRENATAL VITAMINS W/ FOLIC ACID TABLET (FP) PO SCH (09:47)
[2018-10-08] MEDS: amLODIPine BESYLATE 5 MG TABLET (FP) PO SCH (09:47)
[2018-10-08] MEDS: LIDOCAINE 5% TOPICAL PATCH TP SCH (09:47)
[2018-10-08] MEDS: PANTOPRAZOLE 40 MG TABLET (FP) PO SCH (09:47)
[2018-10-08] MEDS: NICOTINE 21 MG/24 HOURS TOPICAL PATCH TD SCH (09:47)
[2018-10-08] MEDS ORDERED: NICOTINE TD SCH (10:00)
[2018-10-08 10:49] LABS: HEMATOCRIT 35.9 % (35.4-49); HEMOGLOBIN 11.8 GM/dL (11.7-16.9); MCH 33.6 pg (25.7-33.7); MCHC 32.8 g/dl (32.0-35.9); MEAN CELL VOLUME 102.5 fl (80-96); MEAN PLT VOLUME 9.4 fl (7.5-11.1); PLATELET COUNT 212 K/MM3 (134-434); RDW 14.3 % (11.9-15.9)
[2018-10-08 11:05] LABS: ALBUMIN 3.2 g/dl (3.4-5.0); ALK PHOS 58 U/L (45-117); ANION GAP 9 MMOL/L (8-16); BILIRUBIN,TOTAL 0.2 mg/dL (0.2-1); BLOOD UREA NITROGEN 24 mg/dL (7-18); CHLORIDE 102 mmol/L (98-107); CO2 26 mmol/L (21-32); CREATININE 1.1 mg/dL (0.55-1.3); GLUCOSE,RANDOM 88 mg/dL (74-106); POTASSIUM 3.8 mmol/L (3.5-5.1); SGOT/AST 42 U/L (15-37); SGPT/ALT 29 U/L (13-61); SODIUM 136 mmol/L (136-145); TOT PROT 7.5 g/dl (6.4-8.2)
[2018-10-08] MEDS ORDERED: DIVALPROEX SODIUM PO SCH (11:30)
--- NOTE | 2018-10-08 11:32 | PN ---
[facility] Progress Note Note: Psychiatrist union contract representative note Called by nursing staff to order medications for patient. Medication reconciliation done and medications ordered
[2018-10-08] MEDS: NON-FORMULARY MED TP SCH ×2 (12:06→23:00)
[2018-10-08] MEDS: OLANZAPINE PO SCH ×2 (14:24→22:56)
[2018-10-08] MEDS: DULOXETINE PO SCH ×2 (14:25→22:55)
[2018-10-08] MEDS: ACETAMINOPHEN 325 MG TABLET (FP) PO PRN (16:55)
[2018-10-08] MEDS: SENNOSIDES 8.6MG TABLET (FP) PO SCH (22:53)
[2018-10-08] MEDS: DIVALPROEX SODIUM PO SCH (22:54)
[2018-10-08] MEDS: LIDOCAINE PATCH REMOVAL MC SCH (22:54)
[2018-10-08] MEDS: TRAZODONE HCL PO SCH (22:55)
[2018-10-08] MEDS: THIAMINE HCL 100 MG TABLET (FP) PO SCH (22:55)
[2018-10-08] MEDS: MIRTAZAPINE PO SCH (22:56)
[2018-10-09] MEDS: hydrOXYzine PAMOATE 50 MG CAPSULE (FP) PO PRN (03:01)
[2018-10-09] MEDS: GABAPENTIN 400 MG CAPSULE (FP) PO SCH ×3 (06:24→21:43)
[2018-10-09] MEDS: DOCUSATE SODIUM 100 MG CAPSULE (FP) PO SCH ×3 (06:24→21:43)
[2018-10-09] MEDS: SUCRALFATE 1 GM TABLET (FP) PO SCH ×4 (06:24→21:43)
[2018-10-09] MEDS: ACETAMINOPHEN 325 MG TABLET (FP) PO PRN ×3 (07:08→21:45)
[2018-10-09] MEDS ORDERED: PT OWN MED DRAWER 7, Y5N ONE (08:35)
[2018-10-09] MEDS: LIDOCAINE 5% TOPICAL PATCH TP SCH (10:07)
[2018-10-09] MEDS: DIVALPROEX SODIUM PO SCH ×2 (10:07→21:46)
[2018-10-09] MEDS: OLANZAPINE PO SCH ×2 (10:07→21:47)
[2018-10-09] MEDS: NICOTINE 21 MG/24 HOURS TOPICAL PATCH TD SCH (10:07)
[2018-10-09] MEDS: PRENATAL VITAMINS W/ FOLIC ACID TABLET (FP) PO SCH (10:11)
[2018-10-09] MEDS: amLODIPine BESYLATE 5 MG TABLET (FP) PO SCH (10:11)
[2018-10-09] MEDS: PANTOPRAZOLE 40 MG TABLET (FP) PO SCH (10:11)
[2018-10-09] MEDS: NON-FORMULARY MED TP SCH ×2 (10:12→22:25)
[2018-10-09] MEDS: DULOXETINE PO SCH ×2 (10:45→23:55)
[2018-10-09] MEDS: CYCLOBENZAPRINE HCL 5 MG TABLET PO SCH ×2 (14:45→21:42)
[2018-10-09] MEDS: THIAMINE HCL 100 MG TABLET (FP) PO SCH (21:42)
[2018-10-09] MEDS: SENNOSIDES 8.6MG TABLET (FP) PO SCH (21:42)
[2018-10-09] MEDS: MELATONIN 5 MG TABLETS PO PRN (21:42)
[2018-10-09] MEDS: MIRTAZAPINE PO SCH (21:47)
[2018-10-09] MEDS: TRAZODONE HCL PO SCH (21:48)
[2018-10-09] MEDS: LIDOCAINE PATCH REMOVAL MC SCH (22:25)
[2018-10-10] MEDS: hydrOXYzine PAMOATE 50 MG CAPSULE (FP) PO PRN ×4 (01:48→21:52)
[2018-10-10] MEDS: GABAPENTIN 400 MG CAPSULE (FP) PO SCH ×3 (06:09→21:52)
[2018-10-10] MEDS: DOCUSATE SODIUM 100 MG CAPSULE (FP) PO SCH ×3 (06:09→21:55)
[2018-10-10] MEDS: CYCLOBENZAPRINE HCL 5 MG TABLET PO SCH (06:09)
[2018-10-10] MEDS: ACETAMINOPHEN 325 MG TABLET (FP) PO PRN ×4 (06:11→21:57)
--- NOTE | 2018-10-10 06:22 | HP ---
Psychiatrist Admission - Data Date of interview: 10/10/18 Admission source: [facility] Identifying data: This is the first [facility] admission for this 63 years old single Black male, unemployed on SSD, homeless Medical History: Significant for hypertension, PUD/GERD, low back pain/sciatica , history of laminectomy in 1995 and right inguinal hernia repairin 1975. Smokes cigarettes 1 ppd Psychiatric History: Patient reports that his first psychiatric contact was 15 years ago when he was evaluated by Dr Mandujano, a private psychiatrist in the [place] whom he is still sees to this day. He was diagnosed with Bipolar Disorder and started on Seroquel and Trazadone. Reports history of multiple psychiatric hospitalizations to various institutions including [facility], [facility] and most recently this month at [facility] where he was admitted for 2 weeks for depression. He was discharged on 10/07/18 on following medications: Depakote 750 mg daily & 1000 mg HS, Cymbalta 30 mg po Q 12hrs, Remeron 15 mg po HS, Zyprexa 10 mg daily & 20 mg HS and referred to this facility for inpt rehab services. Denies previous suicidal attempt. At present, reports feeling anxious and sleeping poorly. Physical/Sexual Abuse/Trauma History: Denies history of emotional, physical or sexual abuse as well as DV relationship. No service Additional Comment: Denies criminal history Vital Signs: Vital Signs - 24 hr 10/09/18 10/09/18 10/10/18 06:40 09:30 00:30 Temperature 97.9 F Pulse Rate 95 H 103 H Respiratory 16 18 20 Rate Blood Pressure 122/83 119/70 10/10/18 03:30 Temperature Pulse Rate Respiratory 20 Rate Blood Pressure Allergies/Adverse Reactions: Allergies Allergy/AdvReac Type Severity Reaction Status Date / Time No Known Allergies Allergy Verified 10/07/18 13:29 Date of last physical exam: 10/07/18 Concur with the findings of this exam: Yes - Substance Abuse/Tx History Hx Alcohol Use: Yes Hx Substance Use: No Substance Use Type: Alcohol (Started drinking alcohol at age 21, consumes 2 pints of vodka daily. Last drank on 09/03/18) Hx Substance Use Treatment: Yes (Multiple previous inpt detox & a few inpt rehab admissions) Mental Status Exam - Mental Status Exam Alert and Oriented to: Time, Place, Person Cognitive Function: Fair Patient Appearance: Well Groomed Mood: Anxious (Mildly) Affect: Appropriate Patient Behavior: Cooperative Speech Pattern: Clear Voice Loudness: Normal Thought Process: Intact, Goal Oriented Thought Disorder: Not Present Hallucinations: Denies Suicidal Ideation: Denies Homicidal Ideation: Denies Insight/Judgement: Fair Sleep: Poorly Appetite: Fair Muscle strength/Tone: Normal Gait/Station: Normal Psychiatric Findings - Problem List ([place] 1, 2,3) (1) Alcohol dependence Current Visit: Yes Status: Acute (2) Nicotine dependence Current Visit: No Status: Chronic Qualifiers: Nicotine product type: cigarettes Substance use status: in withdrawal Qualified Code(s): F17.213 - Nicotine dependence, cigarettes, with withdrawal Comment: . (3) Bipolar disorder Current Visit: Yes Status: Chronic (4) Alcohol-induced anxiety disorder Current Visit: Yes Status: Acute (5) Alcohol-induced sleep disorder Current Visit: Yes Status: Acute (6) Low back pain Current Visit: Yes Status: Chronic (7) Sciatica, left side Current Visit: Yes Status: Chronic (8) GERD (gastroesophageal reflux disease) Current Visit: No Status: Chronic Qualifiers: Esophagitis presence: esophagitis presence not specified Qualified Code(s) : K21.9 - Gastro-esophageal reflux disease without esophagitis (9) Hypertension Current Visit: No Status: Chronic Qualifiers: Hypertension type: essential hypertension Qualified Code(s): I10 - Essential (primary) hypertension - Initial Treatment Plan Initial Treatment Plan: 1) Continue Depakote 750 mg daily & 1000 mg HS, Zyprexa 10 mg daily & 20 mg HS, Cymbalta 60 mg po daily and Remeron 15 mg po HS. 2) Monitor progress
[2018-10-10] MEDS: SUCRALFATE 1 GM TABLET (FP) PO SCH ×4 (06:59→21:50)
[2018-10-10] MEDS ORDERED: PT OWN MED DRAWER 7, Y5N ONE ×4 (08:45→19:39)
[2018-10-10] MEDS: PRENATAL VITAMINS W/ FOLIC ACID TABLET (FP) PO SCH (10:20)
[2018-10-10] MEDS: NICOTINE 21 MG/24 HOURS TOPICAL PATCH TD SCH (10:20)
[2018-10-10] MEDS: amLODIPine BESYLATE 5 MG TABLET (FP) PO SCH (10:21)
[2018-10-10] MEDS: OLANZAPINE PO SCH (10:21)
[2018-10-10] MEDS: DIVALPROEX SODIUM PO SCH (10:21)
[2018-10-10] MEDS: PANTOPRAZOLE 40 MG TABLET (FP) PO SCH (10:21)
[2018-10-10] MEDS: LIDOCAINE 5% TOPICAL PATCH TP SCH (10:22)
[2018-10-10] MEDS: NON-FORMULARY MED TP SCH ×2 (10:23→21:53)
[2018-10-10] MEDS: NICOTINE POLACRILEX 2 MG GUM BUC PRN ×2 (10:29→19:02)
[2018-10-10] MEDS ORDERED: OLANZapine 10 MG TABLET PO SCH (14:00)
[2018-10-10] MEDS ORDERED: DULoxetine HCL 30 MG CAPSULE.DR PO SCH (15:15)
[2018-10-10] MEDS: FLUTICASONE PROP 0.05% 16 GM NASAL SPRAY NS SCH ×2 (15:22→21:48)
[2018-10-10] MEDS: LIDOCAINE PATCH REMOVAL MC SCH (21:48)
[2018-10-10] MEDS: MELATONIN 5 MG TABLETS PO PRN (21:52)
[2018-10-10] MEDS: THIAMINE HCL 100 MG TABLET (FP) PO SCH (21:53)
[2018-10-10] MEDS: TRAZODONE HCL PO SCH (21:53)
[2018-10-10] MEDS: SENNOSIDES 8.6MG TABLET (FP) PO SCH (21:54)
[2018-10-10] MEDS: OLANZapine 10 MG TABLET PO SCH (21:54)
[2018-10-10] MEDS: MIRTAZAPINE 15 MG PO SCH (21:54)
[2018-10-10] MEDS: DIVALPROEX SODIUM 500 MG PO SCH (21:55)
[2018-10-11] MEDS: DOCUSATE SODIUM 100 MG CAPSULE (FP) PO SCH ×3 (06:08→22:15)
[2018-10-11] MEDS: GABAPENTIN 400 MG CAPSULE (FP) PO SCH ×3 (06:08→22:17)
[2018-10-11] MEDS: SUCRALFATE 1 GM TABLET (FP) PO SCH ×4 (06:48→22:15)
[2018-10-11] MEDS ORDERED: PT OWN MED DRAWER 7, Y5N ONE ×3 (08:57→23:01)
[2018-10-11] MEDS: PRENATAL VITAMINS W/ FOLIC ACID TABLET (FP) PO SCH (10:03)
[2018-10-11] MEDS: PANTOPRAZOLE 40 MG TABLET (FP) PO SCH (10:03)
[2018-10-11] MEDS: DIVALPROEX SODIUM PO SCH (10:06)
[2018-10-11] MEDS: FLUTICASONE PROP 0.05% 16 GM NASAL SPRAY NS SCH ×2 (10:06→22:19)
[2018-10-11] MEDS: LIDOCAINE 5% TOPICAL PATCH TP SCH (10:06)
[2018-10-11] MEDS: DULoxetine HCL 30 MG CAPSULE.DR (FP) PO SCH (10:06)
[2018-10-11] MEDS: amLODIPine BESYLATE 5 MG TABLET (FP) PO SCH (10:07)
[2018-10-11] MEDS: NON-FORMULARY MED TP SCH ×2 (10:07→22:19)
[2018-10-11] MEDS: NICOTINE 21 MG/24 HOURS TOPICAL PATCH TD SCH (10:07)
[2018-10-11] MEDS: OLANZAPINE 10 MG PO SCH (10:07)
[2018-10-11] MEDS: ACETAMINOPHEN 325 MG TABLET (FP) PO PRN ×2 (10:08→22:48)
[2018-10-11] MEDS: hydrOXYzine PAMOATE 50 MG CAPSULE (FP) PO PRN ×3 (13:25→22:47)
[2018-10-11] MEDS: CYCLOBENZAPRINE HCL 5 MG TABLET PO PRN (17:19)
[2018-10-11] MEDS: SENNOSIDES 8.6MG TABLET (FP) PO SCH (22:14)
[2018-10-11] MEDS: MELATONIN 5 MG TABLETS PO PRN (22:14)
[2018-10-11] MEDS: THIAMINE HCL 100 MG TABLET (FP) PO SCH (22:15)
[2018-10-11] MEDS: MIRTAZAPINE 15 MG PO SCH (22:15)
[2018-10-11] MEDS: OLANZapine 10 MG TABLET PO SCH (22:16)
[2018-10-11] MEDS: DIVALPROEX SODIUM 500 MG PO SCH (22:16)
[2018-10-11] MEDS: TRAZODONE HCL PO SCH (22:18)
[2018-10-11] MEDS: LIDOCAINE PATCH REMOVAL MC SCH (22:20)
[2018-10-12] MEDS: GABAPENTIN 400 MG CAPSULE (FP) PO SCH ×3 (06:16→21:32)
[2018-10-12] MEDS: DOCUSATE SODIUM 100 MG CAPSULE (FP) PO SCH ×3 (06:16→21:35)
[2018-10-12] MEDS: hydrOXYzine PAMOATE 50 MG CAPSULE (FP) PO PRN ×3 (06:16→15:28)
[2018-10-12] MEDS: CYCLOBENZAPRINE HCL 5 MG TABLET PO PRN ×3 (06:16→21:33)
[2018-10-12] MEDS: SUCRALFATE 1 GM TABLET (FP) PO SCH ×4 (06:48→21:29)
--- NOTE | 2018-10-12 07:39 | PN ---
[facility] Progress Note Note: Patient complains of sleeping poorly despite taking the following medications at bedtime: Depakote 1000 mg + Gabapentin 1200 mg + Trazadone 150 mg + Remeron 15 mg + Vistaril 50 mg + Melatonin 5 mg. Will increase Melatonin dosage to 10 mg po HS prn for insomnia
[2018-10-12] MEDS: DIVALPROEX SODIUM PO SCH (09:46)
[2018-10-12] MEDS: PRENATAL VITAMINS W/ FOLIC ACID TABLET (FP) PO SCH (09:46)
[2018-10-12] MEDS: amLODIPine BESYLATE 5 MG TABLET (FP) PO SCH (09:47)
[2018-10-12] MEDS: PANTOPRAZOLE 40 MG TABLET (FP) PO SCH (09:47)
[2018-10-12] MEDS: FLUTICASONE PROP 0.05% 16 GM NASAL SPRAY NS SCH ×2 (09:47→21:30)
[2018-10-12] MEDS: NON-FORMULARY MED TP SCH ×2 (09:47→21:35)
[2018-10-12] MEDS: LIDOCAINE 5% TOPICAL PATCH TP SCH (09:47)
[2018-10-12] MEDS: OLANZAPINE 10 MG PO SCH (09:47)
[2018-10-12] MEDS: NICOTINE 21 MG/24 HOURS TOPICAL PATCH TD SCH (09:47)
[2018-10-12] MEDS: DULoxetine HCL 30 MG CAPSULE.DR (FP) PO SCH (09:48)
[2018-10-12] MEDS: ACETAMINOPHEN 325 MG TABLET (FP) PO PRN ×3 (09:49→21:35)
[2018-10-12] MEDS ORDERED: CYCLOBENZAPRINE HCL 10 MG TABLET (FP) PO PRN (10:27)
[2018-10-12] MEDS: DIVALPROEX SODIUM 500 MG PO SCH (21:30)
[2018-10-12] MEDS: LIDOCAINE PATCH REMOVAL MC SCH (21:30)
[2018-10-12] MEDS: SENNOSIDES 8.6MG TABLET (FP) PO SCH (21:31)
[2018-10-12] MEDS: MIRTAZAPINE 15 MG PO SCH (21:31)
[2018-10-12] MEDS: OLANZapine 10 MG TABLET PO SCH (21:31)
[2018-10-12] MEDS: THIAMINE HCL 100 MG TABLET (FP) PO SCH (21:31)
[2018-10-12] MEDS: TRAZODONE HCL PO SCH (21:35)
[2018-10-12] MEDS ORDERED: PT OWN MED DRAWER 7, Y5N ONE (21:35)
[2018-10-13] MEDS: DOCUSATE SODIUM 100 MG CAPSULE (FP) PO SCH ×3 (06:32→21:32)
[2018-10-13] MEDS: GABAPENTIN 400 MG CAPSULE (FP) PO SCH ×3 (06:33→21:32)
[2018-10-13] MEDS: SUCRALFATE 1 GM TABLET (FP) PO SCH ×4 (06:33→21:38)
[2018-10-13] MEDS: CYCLOBENZAPRINE HCL 5 MG TABLET PO PRN ×3 (06:34→21:32)
[2018-10-13] MEDS: hydrOXYzine PAMOATE 50 MG CAPSULE (FP) PO PRN ×3 (06:34→21:32)
[2018-10-13] MEDS ORDERED: PT OWN MED DRAWER 7, Y5N ONE ×3 (08:37→20:29)
[2018-10-13] MEDS: FLUTICASONE PROP 0.05% 16 GM NASAL SPRAY NS SCH ×2 (09:36→21:29)
[2018-10-13] MEDS: DULoxetine HCL 30 MG CAPSULE.DR (FP) PO SCH (09:36)
[2018-10-13] MEDS: PRENATAL VITAMINS W/ FOLIC ACID TABLET (FP) PO SCH (09:36)
[2018-10-13] MEDS: amLODIPine BESYLATE 5 MG TABLET (FP) PO SCH (09:36)
[2018-10-13] MEDS: OLANZAPINE 10 MG PO SCH (09:36)
[2018-10-13] MEDS: DIVALPROEX SODIUM PO SCH (09:36)
[2018-10-13] MEDS: NON-FORMULARY MED TP SCH ×2 (09:36→21:32)
[2018-10-13] MEDS: NICOTINE 21 MG/24 HOURS TOPICAL PATCH TD SCH (09:37)
[2018-10-13] MEDS: LIDOCAINE 5% TOPICAL PATCH TP SCH (09:37)
[2018-10-13] MEDS: PANTOPRAZOLE 40 MG TABLET (FP) PO SCH (09:38)
[2018-10-13] MEDS: ACETAMINOPHEN 325 MG TABLET (FP) PO PRN (21:31)
[2018-10-13] MEDS: THIAMINE HCL 100 MG TABLET (FP) PO SCH (21:31)
[2018-10-13] MEDS: MELATONIN 5 MG TABLETS PO PRN (21:32)
[2018-10-13] MEDS: SENNOSIDES 8.6MG TABLET (FP) PO SCH (21:32)
[2018-10-13] MEDS: MIRTAZAPINE 15 MG PO SCH (21:33)
[2018-10-13] MEDS: DIVALPROEX SODIUM 500 MG PO SCH (21:36)
[2018-10-13] MEDS: TRAZODONE HCL PO SCH (21:38)
[2018-10-13] MEDS: OLANZapine 10 MG TABLET PO SCH (21:38)
[2018-10-13] MEDS: LIDOCAINE PATCH REMOVAL MC SCH (21:38)
[2018-10-14] MEDS: hydrOXYzine PAMOATE 50 MG CAPSULE (FP) PO PRN ×3 (06:02→14:06)
[2018-10-14] MEDS: DOCUSATE SODIUM 100 MG CAPSULE (FP) PO SCH ×3 (06:02→21:34)
[2018-10-14] MEDS: GABAPENTIN 400 MG CAPSULE (FP) PO SCH ×3 (06:02→21:34)
[2018-10-14] MEDS: CYCLOBENZAPRINE HCL 5 MG TABLET PO PRN ×2 (06:02→14:06)
[2018-10-14] MEDS: SUCRALFATE 1 GM TABLET (FP) PO SCH ×4 (06:02→21:39)
[2018-10-14] MEDS: ACETAMINOPHEN 325 MG TABLET (FP) PO PRN ×3 (08:58→21:34)
[2018-10-14] MEDS: FLUTICASONE PROP 0.05% 16 GM NASAL SPRAY NS SCH ×2 (10:42→21:39)
[2018-10-14] MEDS: DULoxetine HCL 30 MG CAPSULE.DR (FP) PO SCH (10:43)
[2018-10-14] MEDS: OLANZAPINE 10 MG PO SCH (10:43)
[2018-10-14] MEDS: NICOTINE 21 MG/24 HOURS TOPICAL PATCH TD SCH (10:43)
[2018-10-14] MEDS: DIVALPROEX SODIUM PO SCH (10:43)
[2018-10-14] MEDS: amLODIPine BESYLATE 5 MG TABLET (FP) PO SCH (10:43)
[2018-10-14] MEDS: PANTOPRAZOLE 40 MG TABLET (FP) PO SCH (10:44)
[2018-10-14] MEDS: NON-FORMULARY MED TP SCH ×2 (10:44→21:38)
[2018-10-14] MEDS: PRENATAL VITAMINS W/ FOLIC ACID TABLET (FP) PO SCH (10:44)
[2018-10-14] MEDS: LIDOCAINE 5% TOPICAL PATCH TP SCH (10:44)
[2018-10-14] MEDS ORDERED: PT OWN MED DRAWER 7, Y5N ONE (19:54)
[2018-10-14] MEDS: THIAMINE HCL 100 MG TABLET (FP) PO SCH (21:33)
[2018-10-14] MEDS: MELATONIN 5 MG TABLETS PO PRN (21:34)
[2018-10-14] MEDS: SENNOSIDES 8.6MG TABLET (FP) PO SCH (21:35)
[2018-10-14] MEDS: OLANZapine 10 MG TABLET PO SCH (21:35)
[2018-10-14] MEDS: MIRTAZAPINE 15 MG PO SCH (21:35)
[2018-10-14] MEDS: DIVALPROEX SODIUM 500 MG PO SCH (21:35)
[2018-10-14] MEDS: TRAZODONE HCL PO SCH (21:38)
[2018-10-14] MEDS: LIDOCAINE PATCH REMOVAL MC SCH (21:38)
[2018-10-15] MEDS: hydrOXYzine PAMOATE 50 MG CAPSULE (FP) PO PRN ×3 (02:45→21:36)
[2018-10-15] MEDS: GABAPENTIN 400 MG CAPSULE (FP) PO SCH ×3 (06:25→21:36)
[2018-10-15] MEDS: DOCUSATE SODIUM 100 MG CAPSULE (FP) PO SCH ×3 (06:25→21:37)
[2018-10-15] MEDS: CYCLOBENZAPRINE HCL 5 MG TABLET PO PRN ×2 (06:25→21:36)
[2018-10-15] MEDS: ACETAMINOPHEN 325 MG TABLET (FP) PO PRN ×3 (06:25→21:35)
[2018-10-15] MEDS: SUCRALFATE 1 GM TABLET (FP) PO SCH ×4 (07:30→21:40)
[2018-10-15] MEDS: amLODIPine BESYLATE 5 MG TABLET (FP) PO SCH (10:46)
[2018-10-15] MEDS: PANTOPRAZOLE 40 MG TABLET (FP) PO SCH (10:46)
[2018-10-15] MEDS: FLUTICASONE PROP 0.05% 16 GM NASAL SPRAY NS SCH ×2 (10:46→21:39)
[2018-10-15] MEDS: OLANZAPINE 10 MG PO SCH (10:46)
[2018-10-15] MEDS: DIVALPROEX SODIUM PO SCH (10:46)
[2018-10-15] MEDS: DULoxetine HCL 30 MG CAPSULE.DR (FP) PO SCH (10:46)
[2018-10-15] MEDS: PRENATAL VITAMINS W/ FOLIC ACID TABLET (FP) PO SCH (10:46)
[2018-10-15] MEDS: NON-FORMULARY MED TP SCH ×2 (10:47→21:39)
[2018-10-15] MEDS: LIDOCAINE 5% TOPICAL PATCH TP SCH (10:47)
[2018-10-15] MEDS: NICOTINE 21 MG/24 HOURS TOPICAL PATCH TD SCH (10:47)
[2018-10-15] MEDS ORDERED: PT OWN MED DRAWER 7, Y5N ONE ×2 (19:28→22:35)
[2018-10-15] MEDS: THIAMINE HCL 100 MG TABLET (FP) PO SCH (21:35)
[2018-10-15] MEDS: DIVALPROEX SODIUM 500 MG PO SCH (21:36)
[2018-10-15] MEDS: SENNOSIDES 8.6MG TABLET (FP) PO SCH (21:36)
[2018-10-15] MEDS: MELATONIN 5 MG TABLETS PO PRN (21:36)
[2018-10-15] MEDS: OLANZapine 10 MG TABLET PO SCH (21:37)
[2018-10-15] MEDS: MIRTAZAPINE 15 MG PO SCH (21:37)
[2018-10-15] MEDS: LIDOCAINE PATCH REMOVAL MC SCH (21:39)
[2018-10-15] MEDS: TRAZODONE HCL PO SCH (21:39)
[2018-10-16] MEDS: ACETAMINOPHEN 325 MG TABLET (FP) PO PRN ×2 (06:29→21:42)
[2018-10-16] MEDS: DOCUSATE SODIUM 100 MG CAPSULE (FP) PO SCH ×3 (06:30→21:45)
[2018-10-16] MEDS: GABAPENTIN 400 MG CAPSULE (FP) PO SCH ×3 (06:30→21:40)
[2018-10-16] MEDS: hydrOXYzine PAMOATE 50 MG CAPSULE (FP) PO PRN ×3 (06:30→21:42)
[2018-10-16] MEDS: CYCLOBENZAPRINE HCL 5 MG TABLET PO PRN ×2 (06:30→14:14)
[2018-10-16] MEDS: SUCRALFATE 1 GM TABLET (FP) PO SCH ×4 (06:48→21:44)
[2018-10-16] MEDS ORDERED: PT OWN MED DRAWER 7, Y5N ONE ×2 (09:15→19:32)
[2018-10-16] MEDS: DIVALPROEX SODIUM PO SCH (09:53)
[2018-10-16] MEDS: PRENATAL VITAMINS W/ FOLIC ACID TABLET (FP) PO SCH (09:53)
[2018-10-16] MEDS: amLODIPine BESYLATE 5 MG TABLET (FP) PO SCH (09:53)
[2018-10-16] MEDS: PANTOPRAZOLE 40 MG TABLET (FP) PO SCH (09:53)
[2018-10-16] MEDS: NON-FORMULARY MED TP SCH ×2 (09:54→21:45)
[2018-10-16] MEDS: LIDOCAINE 5% TOPICAL PATCH TP SCH (09:54)
[2018-10-16] MEDS: DULoxetine HCL 30 MG CAPSULE.DR (FP) PO SCH (09:54)
[2018-10-16] MEDS: NICOTINE 21 MG/24 HOURS TOPICAL PATCH TD SCH (09:54)
[2018-10-16] MEDS: FLUTICASONE PROP 0.05% 16 GM NASAL SPRAY NS SCH ×2 (09:54→21:39)
[2018-10-16] MEDS: OLANZAPINE 10 MG PO SCH (09:55)
[2018-10-16] MEDS: SENNOSIDES 8.6MG TABLET (FP) PO SCH (21:41)
[2018-10-16] MEDS: DIVALPROEX SODIUM 500 MG PO SCH (21:41)
[2018-10-16] MEDS: MELATONIN 5 MG TABLETS PO PRN (21:42)
[2018-10-16] MEDS: OLANZapine 10 MG TABLET PO SCH (21:42)
[2018-10-16] MEDS: MIRTAZAPINE 15 MG PO SCH (21:42)
[2018-10-16] MEDS: LIDOCAINE PATCH REMOVAL MC SCH (21:45)
[2018-10-16] MEDS: TRAZODONE HCL PO SCH (21:45)
[2018-10-16] MEDS: THIAMINE HCL 100 MG TABLET (FP) PO SCH (21:45)
[2018-10-17] MEDS: CYCLOBENZAPRINE HCL 5 MG TABLET PO PRN ×2 (06:23→15:17)
[2018-10-17] MEDS: hydrOXYzine PAMOATE 50 MG CAPSULE (FP) PO PRN ×3 (06:23→21:43)
[2018-10-17] MEDS: DOCUSATE SODIUM 100 MG CAPSULE (FP) PO SCH ×3 (06:23→21:43)
[2018-10-17] MEDS: SUCRALFATE 1 GM TABLET (FP) PO SCH ×4 (06:24→21:42)
[2018-10-17] MEDS: GABAPENTIN 400 MG CAPSULE (FP) PO SCH ×3 (06:24→21:47)
[2018-10-17] MEDS: ACETAMINOPHEN 325 MG TABLET (FP) PO PRN ×2 (06:51→13:17)
[2018-10-17] MEDS: amLODIPine BESYLATE 5 MG TABLET (FP) PO SCH (10:02)
[2018-10-17] MEDS: PRENATAL VITAMINS W/ FOLIC ACID TABLET (FP) PO SCH (10:03)
[2018-10-17] MEDS: NON-FORMULARY MED TP SCH ×2 (10:03→22:05)
[2018-10-17] MEDS: DIVALPROEX SODIUM PO SCH (10:03)
[2018-10-17] MEDS: PANTOPRAZOLE 40 MG TABLET (FP) PO SCH (10:03)
[2018-10-17] MEDS: LIDOCAINE 5% TOPICAL PATCH TP SCH (10:04)
[2018-10-17] MEDS: NICOTINE 21 MG/24 HOURS TOPICAL PATCH TD SCH (10:04)
[2018-10-17] MEDS: FLUTICASONE PROP 0.05% 16 GM NASAL SPRAY NS SCH ×2 (10:04→21:48)
[2018-10-17] MEDS: DULoxetine HCL 30 MG CAPSULE.DR (FP) PO SCH (10:06)
[2018-10-17] MEDS ORDERED: PT OWN MED DRAWER 7, Y5N ONE (10:07)
[2018-10-17] MEDS: OLANZAPINE 10 MG PO SCH (10:07)
--- NOTE | 2018-10-17 19:10 | PN ---
S Progress Note Note: Psychiatry Attending's note (coverage) : Called by pharmacist today. Issue : prolonged QT reported in EKG of 03/2018. Chart reviewed. QT = 410/QTc = 517. No current EKG for comparison. Patient is observed as ambulatory, steady. No complaints offered. Visible on the unit, socializing with his peers. Well groomed. Pleasant. Medications revisited. Well tolerated. No report of adverse effects. Discussed with nursing non destructive testing supervisor on duty. Recommendations : Contact medical HOUSEHOLD ASSISTANT on duty. Repeat EKG and follow accordingly.
[2018-10-17] MEDS: DIVALPROEX SODIUM 500 MG PO SCH (21:43)
[2018-10-17] MEDS: THIAMINE HCL 100 MG TABLET (FP) PO SCH (21:43)
[2018-10-17] MEDS: MIRTAZAPINE 15 MG PO SCH (21:43)
[2018-10-17] MEDS: OLANZapine 10 MG TABLET PO SCH (21:43)
[2018-10-17] MEDS: SENNOSIDES 8.6MG TABLET (FP) PO SCH (21:44)
[2018-10-17] MEDS: TRAZODONE HCL PO SCH (21:44)
[2018-10-17] MEDS: LIDOCAINE PATCH REMOVAL MC SCH (21:48)
[2018-10-18] MEDS: DOCUSATE SODIUM 100 MG CAPSULE (FP) PO SCH ×3 (06:05→21:45)
[2018-10-18] MEDS: GABAPENTIN 400 MG CAPSULE (FP) PO SCH ×3 (06:05→21:44)
[2018-10-18] MEDS: hydrOXYzine PAMOATE 50 MG CAPSULE (FP) PO PRN ×4 (06:06→21:45)
[2018-10-18] MEDS: CYCLOBENZAPRINE HCL 5 MG TABLET PO PRN ×2 (06:06→14:18)
[2018-10-18] MEDS: SUCRALFATE 1 GM TABLET (FP) PO SCH ×4 (07:20→21:47)
[2018-10-18] MEDS: DIVALPROEX SODIUM PO SCH (10:36)
[2018-10-18] MEDS: amLODIPine BESYLATE 5 MG TABLET (FP) PO SCH (10:36)
[2018-10-18] MEDS: FLUTICASONE PROP 0.05% 16 GM NASAL SPRAY NS SCH ×2 (10:36→21:47)
[2018-10-18] MEDS: NICOTINE 21 MG/24 HOURS TOPICAL PATCH TD SCH (10:36)
[2018-10-18] MEDS: DULoxetine HCL 30 MG CAPSULE.DR (FP) PO SCH (10:36)
[2018-10-18] MEDS: PRENATAL VITAMINS W/ FOLIC ACID TABLET (FP) PO SCH (10:36)
[2018-10-18] MEDS: PANTOPRAZOLE 40 MG TABLET (FP) PO SCH (10:36)
[2018-10-18] MEDS: LIDOCAINE 5% TOPICAL PATCH TP SCH (10:37)
[2018-10-18] MEDS: NON-FORMULARY MED TP SCH ×2 (10:37→21:48)
[2018-10-18] MEDS: ACETAMINOPHEN 325 MG TABLET (FP) PO PRN ×2 (10:37→21:44)
[2018-10-18] MEDS: OLANZAPINE 10 MG PO SCH (10:37)
--- NOTE | 2018-10-18 16:02 | PN ---
[facility] Progress Note Note: Psychiatry Attending's note (follow-up) : EKG (repeat) done. Normal sinus rythm Prolonged QT QT/QTc = 396/481 Improved. Met with the patient to discuss findings. Medications revisited. Discussed with patient as well. Feels fine. Mr Prasad is noted as comfortable. Relaxed. Somatic complaints : none. Well groomed. Visible, sociable, ambulatory,conversant and stable. Cognitively intact. Endorses euthymic mood and future-orientedness. Denies suicidal/homicidal ideation, intent or plan. Baseline mental status. Normal vitals. Patient is adherent to medications. No adverse events to report. Patterns of sleep reviewed. Noted improvement of sleep schedule (nurse's log). Plan : Continue current regimen of medications. Doses confirmed by patient. Side effects/benefits of EACH drug : discussed, in detail, with patient. Sleep physiology reviewed with the patient (including sleep hygiene). Melatonin discontinued (described by patient as ineffective). EkG to be reviewed by medical attending or medical DOBIE WORKER on duty. No indication for acute psychiatric intervention at this time. Duration of intervention : 35 minutes.
[2018-10-18] MEDS: MIRTAZAPINE 15 MG PO SCH (21:44)
[2018-10-18] MEDS: OLANZapine 10 MG TABLET PO SCH (21:44)
[2018-10-18] MEDS: THIAMINE HCL 100 MG TABLET (FP) PO SCH (21:44)
[2018-10-18] MEDS: SENNOSIDES 8.6MG TABLET (FP) PO SCH (21:44)
[2018-10-18] MEDS: DIVALPROEX SODIUM 500 MG PO SCH (21:45)
[2018-10-18] MEDS: TRAZODONE HCL PO SCH (21:48)
[2018-10-18] MEDS: LIDOCAINE PATCH REMOVAL MC SCH (21:48)
[2018-10-19] MEDS: DOCUSATE SODIUM 100 MG CAPSULE (FP) PO SCH ×3 (06:03→21:37)
[2018-10-19] MEDS: SUCRALFATE 1 GM TABLET (FP) PO SCH ×4 (06:03→23:53)
[2018-10-19] MEDS: GABAPENTIN 400 MG CAPSULE (FP) PO SCH ×3 (06:04→21:36)
[2018-10-19] MEDS: hydrOXYzine PAMOATE 50 MG CAPSULE (FP) PO PRN ×4 (06:04→21:36)
[2018-10-19] MEDS: CYCLOBENZAPRINE HCL 5 MG TABLET PO PRN ×3 (06:04→21:36)
[2018-10-19] MEDS: FLUTICASONE PROP 0.05% 16 GM NASAL SPRAY NS SCH ×2 (10:12→21:36)
[2018-10-19] MEDS: amLODIPine BESYLATE 5 MG TABLET (FP) PO SCH (10:13)
[2018-10-19] MEDS: OLANZAPINE 10 MG PO SCH (10:13)
[2018-10-19] MEDS: DIVALPROEX SODIUM PO SCH (10:13)
[2018-10-19] MEDS: DULoxetine HCL 30 MG CAPSULE.DR (FP) PO SCH (10:13)
[2018-10-19] MEDS: LIDOCAINE 5% TOPICAL PATCH TP SCH (10:13)
[2018-10-19] MEDS: PRENATAL VITAMINS W/ FOLIC ACID TABLET (FP) PO SCH (10:13)
[2018-10-19] MEDS: NICOTINE 21 MG/24 HOURS TOPICAL PATCH TD SCH (10:13)
[2018-10-19] MEDS: PANTOPRAZOLE 40 MG TABLET (FP) PO SCH (10:13)
[2018-10-19] MEDS: NON-FORMULARY MED TP SCH ×2 (10:14→21:37)
[2018-10-19] MEDS: ACETAMINOPHEN 325 MG TABLET (FP) PO PRN (10:14)
[2018-10-19] MEDS ORDERED: PT OWN MED DRAWER 7, Y5N ONE ×2 (20:12→22:18)
[2018-10-19] MEDS: THIAMINE HCL 100 MG TABLET (FP) PO SCH (21:35)
[2018-10-19] MEDS: OLANZapine 10 MG TABLET PO SCH (21:35)
[2018-10-19] MEDS: LIDOCAINE PATCH REMOVAL MC SCH (21:36)
[2018-10-19] MEDS: DIVALPROEX SODIUM 500 MG PO SCH (21:36)
[2018-10-19] MEDS: MIRTAZAPINE 15 MG PO SCH (21:36)
[2018-10-19] MEDS: SENNOSIDES 8.6MG TABLET (FP) PO SCH (21:36)
[2018-10-19] MEDS: TRAZODONE HCL PO SCH (23:53)
[2018-10-20] MEDS: hydrOXYzine PAMOATE 50 MG CAPSULE (FP) PO PRN ×4 (03:15→21:48)
[2018-10-20] MEDS: GABAPENTIN 400 MG CAPSULE (FP) PO SCH ×3 (06:46→21:49)
[2018-10-20] MEDS: DOCUSATE SODIUM 100 MG CAPSULE (FP) PO SCH ×3 (06:46→21:49)
[2018-10-20] MEDS: SUCRALFATE 1 GM TABLET (FP) PO SCH ×4 (06:46→21:51)
[2018-10-20] MEDS: CYCLOBENZAPRINE HCL 5 MG TABLET PO PRN ×2 (10:37→17:47)
[2018-10-20] MEDS: FLUTICASONE PROP 0.05% 16 GM NASAL SPRAY NS SCH ×2 (10:38→21:51)
[2018-10-20] MEDS: PANTOPRAZOLE 40 MG TABLET (FP) PO SCH (10:38)
[2018-10-20] MEDS: amLODIPine BESYLATE 5 MG TABLET (FP) PO SCH (10:38)
[2018-10-20] MEDS: NICOTINE 21 MG/24 HOURS TOPICAL PATCH TD SCH (10:38)
[2018-10-20] MEDS: DIVALPROEX SODIUM PO SCH (10:38)
[2018-10-20] MEDS: DULoxetine HCL 30 MG CAPSULE.DR (FP) PO SCH (10:38)
[2018-10-20] MEDS: NON-FORMULARY MED TP SCH ×2 (10:38→21:51)
[2018-10-20] MEDS: OLANZAPINE 10 MG PO SCH (10:38)
[2018-10-20] MEDS: PRENATAL VITAMINS W/ FOLIC ACID TABLET (FP) PO SCH (10:39)
[2018-10-20] MEDS: ACETAMINOPHEN 325 MG TABLET (FP) PO PRN ×2 (10:39→21:48)
[2018-10-20] MEDS: LIDOCAINE 5% TOPICAL PATCH TP SCH (10:39)
--- NOTE | 2018-10-20 11:59 | EKG ---
Test Reason : Blood Pressure : / mmHG Vent. Rate : 089 BPM Atrial Rate : 089 BPM P-R Int : 172 ms QRS Dur : 100 ms QT Int : 396 ms P-R-T Axes : 063 051 046 degrees QTc Int : 481 ms NORMAL SINUS RHYTHM PROLONGED QT ABNORMAL ECG WHEN COMPARED WITH ECG OF 17-OCT-2018 20:47, PREVIOUS ECG HAS UNDETERMINED RHYTHM, NEEDS REVIEW Confirmed by ARMAND VARGAS, MARK ([id number]) on 10/20/2018 11:59:32 AM Referred By: Confirmed By:MARK ACUNA MD
[2018-10-20] MEDS ORDERED: PT OWN MED DRAWER 7, Y5N ONE (19:28)
[2018-10-20] MEDS: THIAMINE HCL 100 MG TABLET (FP) PO SCH (21:47)
[2018-10-20] MEDS: DIVALPROEX SODIUM 500 MG PO SCH (21:48)
[2018-10-20] MEDS: OLANZapine 10 MG TABLET PO SCH (21:48)
[2018-10-20] MEDS: MIRTAZAPINE 15 MG PO SCH (21:49)
[2018-10-20] MEDS: SENNOSIDES 8.6MG TABLET (FP) PO SCH (21:49)
[2018-10-20] MEDS: LIDOCAINE PATCH REMOVAL MC SCH (21:51)
[2018-10-20] MEDS: TRAZODONE HCL PO SCH (21:52)
[2018-10-21] MEDS: SUCRALFATE 1 GM TABLET (FP) PO SCH ×4 (06:18→22:18)
[2018-10-21] MEDS: ACETAMINOPHEN 325 MG TABLET (FP) PO PRN ×3 (06:18→22:14)
[2018-10-21] MEDS: DOCUSATE SODIUM 100 MG CAPSULE (FP) PO SCH ×3 (06:18→22:14)
[2018-10-21] MEDS: CYCLOBENZAPRINE HCL 5 MG TABLET PO PRN ×2 (06:18→22:14)
[2018-10-21] MEDS: GABAPENTIN 400 MG CAPSULE (FP) PO SCH ×3 (06:18→22:13)
[2018-10-21] MEDS: hydrOXYzine PAMOATE 50 MG CAPSULE (FP) PO PRN ×3 (06:18→22:15)
[2018-10-21] MEDS: LIDOCAINE 5% TOPICAL PATCH TP SCH (10:35)
[2018-10-21] MEDS: NICOTINE 21 MG/24 HOURS TOPICAL PATCH TD SCH (10:35)
[2018-10-21] MEDS: FLUTICASONE PROP 0.05% 16 GM NASAL SPRAY NS SCH ×2 (10:35→22:18)
[2018-10-21] MEDS: OLANZAPINE 10 MG PO SCH (10:36)
[2018-10-21] MEDS: PRENATAL VITAMINS W/ FOLIC ACID TABLET (FP) PO SCH (10:36)
[2018-10-21] MEDS: amLODIPine BESYLATE 5 MG TABLET (FP) PO SCH (10:36)
[2018-10-21] MEDS: DIVALPROEX SODIUM PO SCH (10:37)
[2018-10-21] MEDS: PANTOPRAZOLE 40 MG TABLET (FP) PO SCH (10:37)
[2018-10-21] MEDS: DULoxetine HCL 30 MG CAPSULE.DR (FP) PO SCH (10:38)
[2018-10-21] MEDS: NON-FORMULARY MED TP SCH ×2 (10:38→22:17)
[2018-10-21] MEDS ORDERED: PT OWN MED DRAWER 7, Y5N ONE (19:41)
[2018-10-21] MEDS: THIAMINE HCL 100 MG TABLET (FP) PO SCH (22:13)
[2018-10-21] MEDS: DIVALPROEX SODIUM 500 MG PO SCH (22:14)
[2018-10-21] MEDS: MIRTAZAPINE 15 MG PO SCH (22:15)
[2018-10-21] MEDS: SENNOSIDES 8.6MG TABLET (FP) PO SCH (22:15)
[2018-10-21] MEDS: OLANZapine 10 MG TABLET PO SCH (22:15)
[2018-10-21] MEDS: TRAZODONE HCL PO SCH (22:17)
[2018-10-21] MEDS: LIDOCAINE PATCH REMOVAL MC SCH (22:17)
[2018-10-22] MEDS: hydrOXYzine PAMOATE 50 MG CAPSULE (FP) PO PRN ×4 (06:31→21:48)
[2018-10-22] MEDS: DOCUSATE SODIUM 100 MG CAPSULE (FP) PO SCH ×3 (06:31→21:45)
[2018-10-22] MEDS: CYCLOBENZAPRINE HCL 5 MG TABLET PO PRN ×2 (06:31→17:00)
[2018-10-22] MEDS: ACETAMINOPHEN 325 MG TABLET (FP) PO PRN ×2 (06:31→21:49)
[2018-10-22] MEDS: GABAPENTIN 400 MG CAPSULE (FP) PO SCH ×3 (06:31→21:45)
[2018-10-22] MEDS: SUCRALFATE 1 GM TABLET (FP) PO SCH ×4 (06:31→21:46)
[2018-10-22] MEDS ORDERED: PT OWN MED DRAWER 7, Y5N ONE (08:30)
[2018-10-22] MEDS: OLANZAPINE 10 MG PO SCH (10:34)
[2018-10-22] MEDS: amLODIPine BESYLATE 5 MG TABLET (FP) PO SCH (10:34)
[2018-10-22] MEDS: PRENATAL VITAMINS W/ FOLIC ACID TABLET (FP) PO SCH (10:34)
[2018-10-22] MEDS: PANTOPRAZOLE 40 MG TABLET (FP) PO SCH (10:34)
[2018-10-22] MEDS: DIVALPROEX SODIUM PO SCH (10:35)
[2018-10-22] MEDS: DULoxetine HCL 30 MG CAPSULE.DR (FP) PO SCH (10:35)
[2018-10-22] MEDS: LIDOCAINE 5% TOPICAL PATCH TP SCH (10:35)
[2018-10-22] MEDS: FLUTICASONE PROP 0.05% 16 GM NASAL SPRAY NS SCH ×2 (10:35→21:44)
[2018-10-22] MEDS: NICOTINE 21 MG/24 HOURS TOPICAL PATCH TD SCH (10:40)
[2018-10-22] MEDS: NON-FORMULARY MED TP SCH ×2 (10:40→21:46)
[2018-10-22] MEDS: THIAMINE HCL 100 MG TABLET (FP) PO SCH (21:44)
[2018-10-22] MEDS: DIVALPROEX SODIUM 500 MG PO SCH (21:45)
[2018-10-22] MEDS: LIDOCAINE PATCH REMOVAL MC SCH (21:46)
[2018-10-22] MEDS: OLANZapine 10 MG TABLET PO SCH (21:46)
[2018-10-22] MEDS: MIRTAZAPINE 15 MG PO SCH (21:46)
[2018-10-22] MEDS: SENNOSIDES 8.6MG TABLET (FP) PO SCH (21:46)
[2018-10-22] MEDS: TRAZODONE HCL PO SCH (21:47)
[2018-10-23] MEDS: hydrOXYzine PAMOATE 50 MG CAPSULE (FP) PO PRN ×4 (02:44→22:15)
[2018-10-23] MEDS: ACETAMINOPHEN 325 MG TABLET (FP) PO PRN ×3 (02:44→21:30)
[2018-10-23] MEDS: CYCLOBENZAPRINE HCL 5 MG TABLET PO PRN ×3 (02:44→17:53)
[2018-10-23] MEDS: DOCUSATE SODIUM 100 MG CAPSULE (FP) PO SCH ×3 (06:35→22:12)
[2018-10-23] MEDS: SUCRALFATE 1 GM TABLET (FP) PO SCH ×4 (06:35→22:23)
[2018-10-23] MEDS: GABAPENTIN 400 MG CAPSULE (FP) PO SCH ×3 (06:35→22:12)
[2018-10-23] MEDS ORDERED: PT OWN MED DRAWER 7, Y5N ONE ×5 (08:28→22:17)
[2018-10-23] MEDS: LIDOCAINE 5% TOPICAL PATCH TP SCH (10:16)
[2018-10-23] MEDS: DIVALPROEX SODIUM PO SCH (10:16)
[2018-10-23] MEDS: NICOTINE 21 MG/24 HOURS TOPICAL PATCH TD SCH (10:16)
[2018-10-23] MEDS: OLANZAPINE 10 MG PO SCH (10:16)
[2018-10-23] MEDS: PANTOPRAZOLE 40 MG TABLET (FP) PO SCH (10:16)
[2018-10-23] MEDS: FLUTICASONE PROP 0.05% 16 GM NASAL SPRAY NS SCH ×2 (10:16→22:13)
[2018-10-23] MEDS: DULoxetine HCL 30 MG CAPSULE.DR (FP) PO SCH (10:16)
[2018-10-23] MEDS: PRENATAL VITAMINS W/ FOLIC ACID TABLET (FP) PO SCH (10:16)
[2018-10-23] MEDS: amLODIPine BESYLATE 5 MG TABLET (FP) PO SCH (10:16)
[2018-10-23] MEDS: NON-FORMULARY MED TP SCH ×2 (10:20→22:24)
[2018-10-23] MEDS: DIVALPROEX SODIUM 500 MG PO SCH (22:11)
[2018-10-23] MEDS: SENNOSIDES 8.6MG TABLET (FP) PO SCH (22:12)
[2018-10-23] MEDS: THIAMINE HCL 100 MG TABLET (FP) PO SCH (22:12)
[2018-10-23] MEDS: MIRTAZAPINE 15 MG PO SCH (22:13)
[2018-10-23] MEDS: TRAZODONE HCL PO SCH (22:13)
[2018-10-23] MEDS: OLANZapine 10 MG TABLET PO SCH (22:17)
[2018-10-23] MEDS: LIDOCAINE PATCH REMOVAL MC SCH (22:24)
[2018-10-24] MEDS: ACETAMINOPHEN 325 MG TABLET (FP) PO PRN ×2 (06:25→21:55)
[2018-10-24] MEDS: SUCRALFATE 1 GM TABLET (FP) PO SCH ×4 (06:26→21:55)
[2018-10-24] MEDS: GABAPENTIN 400 MG CAPSULE (FP) PO SCH ×3 (06:26→21:57)
[2018-10-24] MEDS: hydrOXYzine PAMOATE 50 MG CAPSULE (FP) PO PRN ×3 (06:26→21:56)
[2018-10-24] MEDS: DOCUSATE SODIUM 100 MG CAPSULE (FP) PO SCH ×3 (06:26→21:55)
[2018-10-24] MEDS: CYCLOBENZAPRINE HCL 5 MG TABLET PO PRN ×2 (06:26→16:50)
[2018-10-24] MEDS ORDERED: PT OWN MED DRAWER 7, Y5N ONE ×2 (09:04→20:22)
[2018-10-24] MEDS: OLANZAPINE 10 MG PO SCH (11:06)
[2018-10-24] MEDS: FLUTICASONE PROP 0.05% 16 GM NASAL SPRAY NS SCH ×2 (11:06→22:01)
[2018-10-24] MEDS: DULoxetine HCL 30 MG CAPSULE.DR (FP) PO SCH (11:07)
[2018-10-24] MEDS: DIVALPROEX SODIUM PO SCH (11:07)
[2018-10-24] MEDS: LIDOCAINE 5% TOPICAL PATCH TP SCH (11:08)
[2018-10-24] MEDS: PRENATAL VITAMINS W/ FOLIC ACID TABLET (FP) PO SCH (11:09)
[2018-10-24] MEDS: NICOTINE 21 MG/24 HOURS TOPICAL PATCH TD SCH (11:09)
[2018-10-24] MEDS: NON-FORMULARY MED TP SCH ×2 (11:09→21:58)
[2018-10-24] MEDS: amLODIPine BESYLATE 5 MG TABLET (FP) PO SCH (11:09)
[2018-10-24] MEDS: PANTOPRAZOLE 40 MG TABLET (FP) PO SCH (11:11)
[2018-10-24] MEDS: OLANZapine 10 MG TABLET PO SCH (21:56)
[2018-10-24] MEDS: MIRTAZAPINE 15 MG PO SCH (21:56)
[2018-10-24] MEDS: DIVALPROEX SODIUM 500 MG PO SCH (21:56)
[2018-10-24] MEDS: SENNOSIDES 8.6MG TABLET (FP) PO SCH (21:57)
[2018-10-24] MEDS: TRAZODONE HCL PO SCH (21:58)
[2018-10-24] MEDS: THIAMINE HCL 100 MG TABLET (FP) PO SCH (22:02)
[2018-10-24] MEDS: LIDOCAINE PATCH REMOVAL MC SCH (22:02)
[2018-10-25] MEDS: GABAPENTIN 400 MG CAPSULE (FP) PO SCH ×3 (06:32→21:46)
[2018-10-25] MEDS: SUCRALFATE 1 GM TABLET (FP) PO SCH ×4 (06:32→21:51)
[2018-10-25] MEDS: DOCUSATE SODIUM 100 MG CAPSULE (FP) PO SCH ×3 (06:33→21:46)
[2018-10-25] MEDS: hydrOXYzine PAMOATE 50 MG CAPSULE (FP) PO PRN ×4 (06:34→21:48)
[2018-10-25] MEDS: ACETAMINOPHEN 325 MG TABLET (FP) PO PRN ×3 (06:34→21:46)
[2018-10-25] MEDS: CYCLOBENZAPRINE HCL 5 MG TABLET PO PRN ×3 (06:34→21:48)
[2018-10-25] MEDS: DULoxetine HCL 30 MG CAPSULE.DR (FP) PO SCH (10:10)
[2018-10-25] MEDS: LIDOCAINE 5% TOPICAL PATCH TP SCH (10:10)
[2018-10-25] MEDS: amLODIPine BESYLATE 5 MG TABLET (FP) PO SCH (10:10)
[2018-10-25] MEDS: DIVALPROEX SODIUM PO SCH (10:10)
[2018-10-25] MEDS: FLUTICASONE PROP 0.05% 16 GM NASAL SPRAY NS SCH ×2 (10:10→21:51)
[2018-10-25] MEDS: PRENATAL VITAMINS W/ FOLIC ACID TABLET (FP) PO SCH (10:11)
[2018-10-25] MEDS: OLANZAPINE 10 MG PO SCH (10:11)
[2018-10-25] MEDS: NICOTINE 21 MG/24 HOURS TOPICAL PATCH TD SCH (10:11)
[2018-10-25] MEDS: NON-FORMULARY MED TP SCH ×2 (10:11→21:50)
[2018-10-25] MEDS: PANTOPRAZOLE 40 MG TABLET (FP) PO SCH (10:11)
[2018-10-25] MEDS ORDERED: PT OWN MED DRAWER 7, Y5N ONE (20:13)
[2018-10-25] MEDS: THIAMINE HCL 100 MG TABLET (FP) PO SCH (21:45)
[2018-10-25] MEDS: OLANZapine 10 MG TABLET PO SCH (21:46)
[2018-10-25] MEDS: SENNOSIDES 8.6MG TABLET (FP) PO SCH (21:47)
[2018-10-25] MEDS: MIRTAZAPINE 15 MG PO SCH (21:47)
[2018-10-25] MEDS: DIVALPROEX SODIUM 500 MG PO SCH (21:47)
[2018-10-25] MEDS: LIDOCAINE PATCH REMOVAL MC SCH (21:50)
[2018-10-25] MEDS: TRAZODONE HCL PO SCH (21:50)
[2018-10-26] MEDS: ACETAMINOPHEN 325 MG TABLET (FP) PO PRN ×2 (06:27→10:01)
[2018-10-26] MEDS: hydrOXYzine PAMOATE 50 MG CAPSULE (FP) PO PRN ×4 (06:27→21:50)
[2018-10-26] MEDS: CYCLOBENZAPRINE HCL 5 MG TABLET PO PRN ×2 (06:27→15:10)
[2018-10-26] MEDS: SUCRALFATE 1 GM TABLET (FP) PO SCH ×4 (06:28→21:48)
[2018-10-26] MEDS: DOCUSATE SODIUM 100 MG CAPSULE (FP) PO SCH ×3 (06:28→21:48)
[2018-10-26] MEDS: GABAPENTIN 400 MG CAPSULE (FP) PO SCH ×3 (06:28→21:49)
[2018-10-26] MEDS: amLODIPine BESYLATE 5 MG TABLET (FP) PO SCH (10:00)
[2018-10-26] MEDS: DULoxetine HCL 30 MG CAPSULE.DR (FP) PO SCH (10:00)
[2018-10-26] MEDS: DIVALPROEX SODIUM PO SCH (10:00)
[2018-10-26] MEDS: PANTOPRAZOLE 40 MG TABLET (FP) PO SCH (10:00)
[2018-10-26] MEDS: FLUTICASONE PROP 0.05% 16 GM NASAL SPRAY NS SCH ×2 (10:00→21:51)
[2018-10-26] MEDS: OLANZAPINE 10 MG PO SCH (10:00)
[2018-10-26] MEDS: LIDOCAINE 5% TOPICAL PATCH TP SCH (10:01)
[2018-10-26] MEDS: NON-FORMULARY MED TP SCH ×2 (10:01→21:51)
[2018-10-26] MEDS: NICOTINE 21 MG/24 HOURS TOPICAL PATCH TD SCH (10:01)
[2018-10-26] MEDS: PRENATAL VITAMINS W/ FOLIC ACID TABLET (FP) PO SCH (10:01)
[2018-10-26] MEDS ORDERED: PT OWN MED DRAWER 7, Y5N ONE ×2 (20:44→22:04)
[2018-10-26] MEDS: DIVALPROEX SODIUM 500 MG PO SCH (21:48)
[2018-10-26] MEDS: OLANZapine 10 MG TABLET PO SCH (21:49)
[2018-10-26] MEDS: SENNOSIDES 8.6MG TABLET (FP) PO SCH (21:49)
[2018-10-26] MEDS: THIAMINE HCL 100 MG TABLET (FP) PO SCH (21:49)
[2018-10-26] MEDS: MIRTAZAPINE 15 MG PO SCH (21:49)
[2018-10-26] MEDS: TRAZODONE HCL PO SCH (21:49)
[2018-10-26] MEDS: LIDOCAINE PATCH REMOVAL MC SCH (21:51)
[2018-10-27] MEDS: CYCLOBENZAPRINE HCL 5 MG TABLET PO PRN ×3 (00:47→21:16)
[2018-10-27] MEDS: GABAPENTIN 400 MG CAPSULE (FP) PO SCH ×3 (06:09→21:15)
[2018-10-27] MEDS: DOCUSATE SODIUM 100 MG CAPSULE (FP) PO SCH ×3 (06:09→21:15)
[2018-10-27] MEDS: SUCRALFATE 1 GM TABLET (FP) PO SCH ×4 (06:09→21:19)
[2018-10-27] MEDS: hydrOXYzine PAMOATE 50 MG CAPSULE (FP) PO PRN ×4 (06:09→21:16)
[2018-10-27] MEDS ORDERED: PT OWN MED DRAWER 7, Y5N ONE ×2 (08:34→19:51)
[2018-10-27] MEDS: amLODIPine BESYLATE 5 MG TABLET (FP) PO SCH (09:49)
[2018-10-27] MEDS: NON-FORMULARY MED TP SCH ×2 (09:49→21:20)
[2018-10-27] MEDS: OLANZAPINE 10 MG PO SCH (09:49)
[2018-10-27] MEDS: DULoxetine HCL 30 MG CAPSULE.DR (FP) PO SCH (09:49)
[2018-10-27] MEDS: DIVALPROEX SODIUM PO SCH (09:49)
[2018-10-27] MEDS: FLUTICASONE PROP 0.05% 16 GM NASAL SPRAY NS SCH ×2 (09:49→21:19)
[2018-10-27] MEDS: NICOTINE 21 MG/24 HOURS TOPICAL PATCH TD SCH (09:49)
[2018-10-27] MEDS: PRENATAL VITAMINS W/ FOLIC ACID TABLET (FP) PO SCH (09:50)
[2018-10-27] MEDS: NICOTINE POLACRILEX 2 MG GUM BUC PRN (09:50)
[2018-10-27] MEDS: LIDOCAINE 5% TOPICAL PATCH TP SCH (09:50)
[2018-10-27] MEDS: PANTOPRAZOLE 40 MG TABLET (FP) PO SCH (09:50)
[2018-10-27] MEDS: THIAMINE HCL 100 MG TABLET (FP) PO SCH (21:15)
[2018-10-27] MEDS: SENNOSIDES 8.6MG TABLET (FP) PO SCH (21:15)
[2018-10-27] MEDS: ACETAMINOPHEN 325 MG TABLET (FP) PO PRN (21:16)
[2018-10-27] MEDS: OLANZapine 10 MG TABLET PO SCH (21:16)
[2018-10-27] MEDS: DIVALPROEX SODIUM 500 MG PO SCH (21:16)
[2018-10-27] MEDS: MIRTAZAPINE 15 MG PO SCH (21:16)
[2018-10-27] MEDS: TRAZODONE HCL PO SCH (21:18)
[2018-10-27] MEDS: LIDOCAINE PATCH REMOVAL MC SCH (21:19)
[2018-10-28] MEDS: CYCLOBENZAPRINE HCL 5 MG TABLET PO PRN ×3 (06:55→21:29)
[2018-10-28] MEDS: SUCRALFATE 1 GM TABLET (FP) PO SCH ×4 (06:55→21:33)
[2018-10-28] MEDS: DOCUSATE SODIUM 100 MG CAPSULE (FP) PO SCH ×3 (06:55→21:28)
[2018-10-28] MEDS: hydrOXYzine PAMOATE 50 MG CAPSULE (FP) PO PRN ×3 (06:55→21:29)
[2018-10-28] MEDS: GABAPENTIN 400 MG CAPSULE (FP) PO SCH ×3 (06:56→21:30)
[2018-10-28] MEDS: NICOTINE 21 MG/24 HOURS TOPICAL PATCH TD SCH (09:51)
[2018-10-28] MEDS: PRENATAL VITAMINS W/ FOLIC ACID TABLET (FP) PO SCH (09:52)
[2018-10-28] MEDS: amLODIPine BESYLATE 5 MG TABLET (FP) PO SCH (09:53)
[2018-10-28] MEDS: DIVALPROEX SODIUM PO SCH (09:53)
[2018-10-28] MEDS: OLANZAPINE 10 MG PO SCH (09:53)
[2018-10-28] MEDS: DULoxetine HCL 30 MG CAPSULE.DR (FP) PO SCH (09:54)
[2018-10-28] MEDS: FLUTICASONE PROP 0.05% 16 GM NASAL SPRAY NS SCH ×2 (09:55→21:33)
[2018-10-28] MEDS: LIDOCAINE 5% TOPICAL PATCH TP SCH (09:58)
[2018-10-28] MEDS: PANTOPRAZOLE 40 MG TABLET (FP) PO SCH (10:36)
[2018-10-28] MEDS: NON-FORMULARY MED TP SCH ×2 (10:36→21:32)
--- NOTE | 2018-10-28 14:29 | PN ---
[facility] Progress Note Note: Requesting athletes foot cream- done
[2018-10-28] MEDS: MENTHOL/PHENOL 1 EACH UD MM PRN ×2 (17:06→21:27)
[2018-10-28] MEDS: THIAMINE HCL 100 MG TABLET (FP) PO SCH (21:27)
[2018-10-28] MEDS: DIVALPROEX SODIUM 500 MG PO SCH (21:28)
[2018-10-28] MEDS: SENNOSIDES 8.6MG TABLET (FP) PO SCH (21:28)
[2018-10-28] MEDS: OLANZapine 10 MG TABLET PO SCH (21:28)
[2018-10-28] MEDS: TRAZODONE HCL PO SCH (21:28)
[2018-10-28] MEDS: ACETAMINOPHEN 325 MG TABLET (FP) PO PRN (21:29)
[2018-10-28] MEDS: MIRTAZAPINE 15 MG PO SCH (21:30)
[2018-10-28] MEDS: CLOTRIMAZOLE 1% CREAM 15 GM TUBE TP SCH (21:32)
[2018-10-28] MEDS: LIDOCAINE PATCH REMOVAL MC SCH (21:33)
[2018-10-29] MEDS: ACETAMINOPHEN 325 MG TABLET (FP) PO PRN ×3 (06:14→21:19)
[2018-10-29] MEDS: MENTHOL/PHENOL 1 EACH UD MM PRN ×4 (06:15→21:17)
[2018-10-29] MEDS: CYCLOBENZAPRINE HCL 5 MG TABLET PO PRN ×3 (06:15→21:18)
[2018-10-29] MEDS: GABAPENTIN 400 MG CAPSULE (FP) PO SCH ×3 (06:15→21:18)
[2018-10-29] MEDS: hydrOXYzine PAMOATE 50 MG CAPSULE (FP) PO PRN ×3 (06:15→21:18)
[2018-10-29] MEDS: DOCUSATE SODIUM 100 MG CAPSULE (FP) PO SCH ×3 (06:15→21:18)
[2018-10-29] MEDS: SUCRALFATE 1 GM TABLET (FP) PO SCH ×4 (06:15→21:21)
[2018-10-29] MEDS: DIVALPROEX SODIUM PO SCH (11:12)
[2018-10-29] MEDS: PANTOPRAZOLE 40 MG TABLET (FP) PO SCH (11:13)
[2018-10-29] MEDS: OLANZAPINE 10 MG PO SCH (11:14)
[2018-10-29] MEDS: DULoxetine HCL 30 MG CAPSULE.DR (FP) PO SCH (11:14)
[2018-10-29] MEDS: FLUTICASONE PROP 0.05% 16 GM NASAL SPRAY NS SCH ×2 (11:14→21:22)
[2018-10-29] MEDS: amLODIPine BESYLATE 5 MG TABLET (FP) PO SCH (11:14)
[2018-10-29] MEDS: LIDOCAINE 5% TOPICAL PATCH TP SCH (11:15)
[2018-10-29] MEDS: PRENATAL VITAMINS W/ FOLIC ACID TABLET (FP) PO SCH (11:16)
[2018-10-29] MEDS: guaiFENesin/D-METHORPHAN HB 10 ML UNIT-DOSE CUPS PO PRN ×2 (13:11→21:17)
[2018-10-29] MEDS: CLOTRIMAZOLE 1% CREAM 15 GM TUBE TP SCH ×2 (13:15→21:22)
[2018-10-29] MEDS: NICOTINE 21 MG/24 HOURS TOPICAL PATCH TD SCH (13:16)
[2018-10-29] MEDS: NON-FORMULARY MED TP SCH ×2 (13:16→21:22)
[2018-10-29] MEDS ORDERED: PT OWN MED DRAWER 7, Y5N ONE (15:54)
[2018-10-29] MEDS: THIAMINE HCL 100 MG TABLET (FP) PO SCH (21:17)
[2018-10-29] MEDS: SENNOSIDES 8.6MG TABLET (FP) PO SCH (21:18)
[2018-10-29] MEDS: MIRTAZAPINE 15 MG PO SCH (21:18)
[2018-10-29] MEDS: OLANZapine 10 MG TABLET PO SCH (21:18)
[2018-10-29] MEDS: LIDOCAINE PATCH REMOVAL MC SCH (21:22)
[2018-10-29] MEDS: DIVALPROEX SODIUM 500 MG PO SCH (21:22)
[2018-10-29] MEDS: TRAZODONE HCL PO SCH (21:23)
[2018-10-30] MEDS: hydrOXYzine PAMOATE 50 MG CAPSULE (FP) PO PRN ×3 (06:46→21:24)
[2018-10-30] MEDS: MENTHOL/PHENOL 1 EACH UD MM PRN ×3 (06:46→21:26)
[2018-10-30] MEDS: guaiFENesin/D-METHORPHAN HB 10 ML UNIT-DOSE CUPS PO PRN ×3 (06:46→21:23)
[2018-10-30] MEDS: GABAPENTIN 400 MG CAPSULE (FP) PO SCH ×3 (06:46→21:23)
[2018-10-30] MEDS: DOCUSATE SODIUM 100 MG CAPSULE (FP) PO SCH ×3 (06:46→21:24)
[2018-10-30] MEDS: CYCLOBENZAPRINE HCL 5 MG TABLET PO PRN ×3 (06:46→21:24)
[2018-10-30] MEDS: SUCRALFATE 1 GM TABLET (FP) PO SCH ×4 (07:00→21:26)
[2018-10-30] MEDS: FLUTICASONE PROP 0.05% 16 GM NASAL SPRAY NS SCH ×2 (10:34→21:27)
[2018-10-30] MEDS: DIVALPROEX SODIUM PO SCH (10:35)
[2018-10-30] MEDS: amLODIPine BESYLATE 5 MG TABLET (FP) PO SCH (10:35)
[2018-10-30] MEDS: DULoxetine HCL 30 MG CAPSULE.DR (FP) PO SCH (10:35)
[2018-10-30] MEDS: OLANZAPINE 10 MG PO SCH (10:35)
[2018-10-30] MEDS: PRENATAL VITAMINS W/ FOLIC ACID TABLET (FP) PO SCH (10:35)
[2018-10-30] MEDS: PANTOPRAZOLE 40 MG TABLET (FP) PO SCH (10:35)
[2018-10-30] MEDS: LIDOCAINE 5% TOPICAL PATCH TP SCH (10:36)
[2018-10-30] MEDS: NON-FORMULARY MED TP SCH ×2 (10:36→21:27)
[2018-10-30] MEDS: NICOTINE 21 MG/24 HOURS TOPICAL PATCH TD SCH (10:36)
[2018-10-30] MEDS: CLOTRIMAZOLE 1% CREAM 15 GM TUBE TP SCH ×2 (10:36→21:27)
[2018-10-30] MEDS: ACETAMINOPHEN 325 MG TABLET (FP) PO PRN ×2 (12:14→21:24)
[2018-10-30] MEDS ORDERED: PT OWN MED DRAWER 7, Y5N ONE (20:30)
[2018-10-30] MEDS: THIAMINE HCL 100 MG TABLET (FP) PO SCH (21:23)
[2018-10-30] MEDS: SENNOSIDES 8.6MG TABLET (FP) PO SCH (21:24)
[2018-10-30] MEDS: MIRTAZAPINE 15 MG PO SCH (21:24)
[2018-10-30] MEDS: DIVALPROEX SODIUM 500 MG PO SCH (21:27)
[2018-10-30] MEDS: LIDOCAINE PATCH REMOVAL MC SCH (21:27)
[2018-10-30] MEDS: TRAZODONE HCL PO SCH (21:27)
[2018-10-30] MEDS: OLANZapine 10 MG TABLET PO SCH (21:28)
[2018-10-31] MEDS: SUCRALFATE 1 GM TABLET (FP) PO SCH ×4 (06:15→22:00)
[2018-10-31] MEDS: hydrOXYzine PAMOATE 50 MG CAPSULE (FP) PO PRN ×4 (06:15→21:59)
[2018-10-31] MEDS: CYCLOBENZAPRINE HCL 5 MG TABLET PO PRN ×3 (06:15→21:59)
[2018-10-31] MEDS: DOCUSATE SODIUM 100 MG CAPSULE (FP) PO SCH ×3 (06:15→21:59)
[2018-10-31] MEDS: GABAPENTIN 400 MG CAPSULE (FP) PO SCH ×3 (06:15→21:56)
[2018-10-31] MEDS: guaiFENesin/D-METHORPHAN HB 10 ML UNIT-DOSE CUPS PO PRN ×3 (06:15→21:59)
[2018-10-31] MEDS: CLOTRIMAZOLE 1% CREAM 15 GM TUBE TP SCH ×2 (10:00→22:01)
[2018-10-31] MEDS: OLANZAPINE 10 MG PO SCH (10:00)
[2018-10-31] MEDS: ACETAMINOPHEN 325 MG TABLET (FP) PO PRN ×2 (10:01→21:59)
[2018-10-31] MEDS: DULoxetine HCL 30 MG CAPSULE.DR (FP) PO SCH (10:01)
[2018-10-31] MEDS: PANTOPRAZOLE 40 MG TABLET (FP) PO SCH (10:01)
[2018-10-31] MEDS: amLODIPine BESYLATE 5 MG TABLET (FP) PO SCH (10:01)
[2018-10-31] MEDS: DIVALPROEX SODIUM PO SCH (10:01)
[2018-10-31] MEDS: PRENATAL VITAMINS W/ FOLIC ACID TABLET (FP) PO SCH (10:02)
[2018-10-31] MEDS: LIDOCAINE 5% TOPICAL PATCH TP SCH (10:02)
[2018-10-31] MEDS: NON-FORMULARY MED TP SCH ×2 (10:02→21:57)
[2018-10-31] MEDS: NICOTINE 21 MG/24 HOURS TOPICAL PATCH TD SCH (10:05)
[2018-10-31] MEDS: FLUTICASONE PROP 0.05% 16 GM NASAL SPRAY NS SCH ×2 (10:05→22:01)
[2018-10-31] MEDS: DIVALPROEX SODIUM 500 MG PO SCH (21:55)
[2018-10-31] MEDS: SENNOSIDES 8.6MG TABLET (FP) PO SCH (21:55)
[2018-10-31] MEDS: MIRTAZAPINE 15 MG PO SCH (21:55)
[2018-10-31] MEDS: OLANZapine 10 MG TABLET PO SCH (21:55)
[2018-10-31] MEDS: LIDOCAINE PATCH REMOVAL MC SCH (21:57)
[2018-10-31] MEDS: THIAMINE HCL 100 MG TABLET (FP) PO SCH (22:01)
[2018-10-31] MEDS: TRAZODONE HCL PO SCH (22:02)
[2018-10-31] MEDS ORDERED: PT OWN MED DRAWER 7, Y5N ONE (22:03)
[2018-11-01] MEDS: CYCLOBENZAPRINE HCL 5 MG TABLET PO PRN ×3 (06:06→21:58)
[2018-11-01] MEDS: DOCUSATE SODIUM 100 MG CAPSULE (FP) PO SCH ×3 (06:06→21:58)
[2018-11-01] MEDS: guaiFENesin/D-METHORPHAN HB 10 ML UNIT-DOSE CUPS PO PRN ×2 (06:06→21:57)
[2018-11-01] MEDS: GABAPENTIN 400 MG CAPSULE (FP) PO SCH ×3 (06:06→21:58)
[2018-11-01] MEDS: hydrOXYzine PAMOATE 50 MG CAPSULE (FP) PO PRN ×3 (06:06→21:57)
[2018-11-01] MEDS: ACETAMINOPHEN 325 MG TABLET (FP) PO PRN ×3 (06:06→21:58)
[2018-11-01] MEDS: SUCRALFATE 1 GM TABLET (FP) PO SCH ×4 (07:04→22:00)
[2018-11-01] MEDS: LIDOCAINE 5% TOPICAL PATCH TP SCH (09:57)
[2018-11-01] MEDS: DIVALPROEX SODIUM PO SCH (09:58)
[2018-11-01] MEDS: PRENATAL VITAMINS W/ FOLIC ACID TABLET (FP) PO SCH (09:58)
[2018-11-01] MEDS: NICOTINE 21 MG/24 HOURS TOPICAL PATCH TD SCH (09:58)
[2018-11-01] MEDS: NON-FORMULARY MED TP SCH ×2 (09:59→22:01)
[2018-11-01] MEDS: amLODIPine BESYLATE 5 MG TABLET (FP) PO SCH (09:59)
[2018-11-01] MEDS: FLUTICASONE PROP 0.05% 16 GM NASAL SPRAY NS SCH ×2 (09:59→22:01)
[2018-11-01] MEDS: PANTOPRAZOLE 40 MG TABLET (FP) PO SCH (09:59)
[2018-11-01] MEDS: CLOTRIMAZOLE 1% CREAM 15 GM TUBE TP SCH ×2 (10:00→22:01)
[2018-11-01] MEDS: DULoxetine HCL 30 MG CAPSULE.DR (FP) PO SCH (10:02)
[2018-11-01] MEDS: OLANZAPINE 10 MG PO SCH (11:17)
[2018-11-01] MEDS: MIRTAZAPINE 15 MG PO SCH (21:57)
[2018-11-01] MEDS: OLANZapine 10 MG TABLET PO SCH (21:57)
[2018-11-01] MEDS: DIVALPROEX SODIUM 500 MG PO SCH (21:57)
[2018-11-01] MEDS: THIAMINE HCL 100 MG TABLET (FP) PO SCH (21:57)
[2018-11-01] MEDS: SENNOSIDES 8.6MG TABLET (FP) PO SCH (21:58)
[2018-11-01] MEDS: LIDOCAINE PATCH REMOVAL MC SCH (22:01)
[2018-11-01] MEDS: TRAZODONE HCL PO SCH (22:02)
[2018-11-02] MEDS: guaiFENesin/D-METHORPHAN HB 10 ML UNIT-DOSE CUPS PO PRN ×2 (06:58→15:27)
[2018-11-02] MEDS: CYCLOBENZAPRINE HCL 5 MG TABLET PO PRN ×3 (06:58→23:19)
[2018-11-02] MEDS: GABAPENTIN 400 MG CAPSULE (FP) PO SCH ×3 (06:58→21:54)
[2018-11-02] MEDS: SUCRALFATE 1 GM TABLET (FP) PO SCH ×4 (06:58→21:57)
[2018-11-02] MEDS: hydrOXYzine PAMOATE 50 MG CAPSULE (FP) PO PRN ×3 (06:58→21:56)
[2018-11-02] MEDS: DOCUSATE SODIUM 100 MG CAPSULE (FP) PO SCH ×3 (06:58→21:54)
[2018-11-02] MEDS: ACETAMINOPHEN 325 MG TABLET (FP) PO PRN (06:59)
[2018-11-02] MEDS ORDERED: PT OWN MED DRAWER 7, Y5N ONE ×2 (08:31→08:33)
[2018-11-02] MEDS: PANTOPRAZOLE 40 MG TABLET (FP) PO SCH (10:02)
[2018-11-02] MEDS: amLODIPine BESYLATE 5 MG TABLET (FP) PO SCH (10:02)
[2018-11-02] MEDS: DIVALPROEX SODIUM PO SCH (10:03)
[2018-11-02] MEDS: FLUTICASONE PROP 0.05% 16 GM NASAL SPRAY NS SCH ×2 (10:03→21:57)
[2018-11-02] MEDS: LIDOCAINE 5% TOPICAL PATCH TP SCH (10:03)
[2018-11-02] MEDS: PRENATAL VITAMINS W/ FOLIC ACID TABLET (FP) PO SCH (10:03)
[2018-11-02] MEDS: DULoxetine HCL 30 MG CAPSULE.DR (FP) PO SCH (10:03)
[2018-11-02] MEDS: CLOTRIMAZOLE 1% CREAM 15 GM TUBE TP SCH ×2 (10:04→21:57)
[2018-11-02] MEDS: OLANZAPINE 10 MG PO SCH (10:05)
[2018-11-02] MEDS: NICOTINE 21 MG/24 HOURS TOPICAL PATCH TD SCH (10:05)
[2018-11-02] MEDS: NON-FORMULARY MED TP SCH ×2 (10:05→21:57)
--- NOTE | 2018-11-02 17:31 | PN ---
Psychiatric Progress Note Vital Signs: Vital Signs Period Temp Pulse Resp BP Sys/Grimm Pulse Ox Last 24 Hr 97.7 F 86-91 18-20 130-132/79-84 Date of Session: 11/02/18 Chief Complaint:: "Discharge" HPI: Patient admitted to [facility] for alcohol dependence. ROS: Significant for hypertension, PUD/GERD, low back pain/sciatica, history of laminectomy in 1995 and right inguinal hernia repairin 1975 Current Medications: Active Medications Generic Name Dose Route Start Last Admin Trade Name Freq PRN Reason Stop Dose Admin Acetaminophen 650 mg 10/07/18 14:56 11/02/18 06:59 Tylenol - PO 650 mg Q4H PRN Administration FEVER Al Hydroxide/Mg Hydroxide 30 ml 10/07/18 14:56 Mylanta Oral Suspension - PO Q6H PRN DYSPEPSIA Amlodipine Besylate 5 mg 10/08/18 10:00 11/02/18 10:02 Norvasc - PO 5 mg DAILY DON Administration Clotrimazole 1 applic 10/28/18 22:00 11/02/18 10:04 Lotrimin 1% Cream - TP 11/03/18 23:59 Not Given BID DON Cyclobenzaprine HCl 5 mg 10/11/18 16:14 11/02/18 15:27 Cyclobenzaprine Hcl PO 5 mg TID PRN Administration PAIN LEVEL 1-5 Divalproex Sodium 750 mg 10/11/18 10:00 11/02/18 10:03 Depakote - PO 750 mg DAILY DON Administration Divalproex Sodium 1,000 mg 10/10/18 22:00 11/01/18 21:57 Depakote - PO 1,000 mg HS DON Administration Docusate Sodium 100 mg 10/07/18 22:00 11/02/18 13:23 Colace - PO 100 mg TID DON Administration Duloxetine HCl 60 mg 10/10/18 15:17 11/02/18 10:03 Cymbalta - PO 60 mg DAILY DON Administration Eucalyptus/Menthol/Phenol/Sorbitol 1 each 10/07/18 14:56 10/30/18 21:26 Cepastat Lozenge - MM 1 each Q4H PRN Administration SORE THROAT Fluticasone Propionate 1 spray 10/10/18 14:00 11/02/18 10:03 Flonase - NS 1 spray BID DON Administration Gabapentin 400 mg 10/08/18 06:00 11/02/18 13:23 Neurontin - PO 400 mg BID@0600,1400 DON Administration Gabapentin 1,200 mg 10/07/18 22:00 11/01/18 21:58 Neurontin - PO 1,200 mg HS DON Administration Guaifenesin 10 ml 10/07/18 14:56 11/02/18 15:27 Robitussin Dm - PO 10 ml Q6H PRN Administration COUGH Hydroxyzine Pamoate 50 mg 10/08/18 11:20 11/02/18 15:27 Vistaril - PO 50 mg Q4H PRN Administration ANXIETY Ibuprofen 400 mg 10/07/18 14:56 10/08/18 12:07 Motrin - PO 400 mg Q6H PRN Administration Pain level 4-6 Lidocaine 1 patch 10/08/18 10:00 11/02/18 10:03 Lidoderm Patch - TP 1 patch DAILY DON Administration Loperamide HCl 4 mg 10/07/18 14:56 Imodium - PO Q6H PRN DIARRHEA Magnesium Citrate 300 ml 10/07/18 14:56 Citroma - PO Q48H PRN CONSTIPATION Magnesium Hydroxide 30 ml 10/07/18 14:56 Milk Of Magnesia - PO DAILY PRN CONSTIPATION Mirtazapine 15 mg 10/10/18 22:00 11/01/18 21:57 Remeron - PO 15 mg HS DON Administration Miscellaneous 1 each 10/08/18 22:00 11/01/18 22:01 Lidoderm Patch Removal MC 1 each DAILY@2200 DON Administration Nicotine 21 mg 10/07/18 15:00 11/02/18 10:05 Nicoderm Patch - TD 21 mg DAILY DON Administration Nicotine Polacrilex 2 mg 10/07/18 14:56 10/27/18 09:50 Nicorette Gum - BUC 2 mg Q2H PRN Administration NICOTINE REPLACEMENT RX Non-Formulary Medication 1 each 10/07/18 22:00 11/02/18 10:05 Non-Formulary Med TP Not Given BID DON Non-Formulary Medication 0 mg 10/08/18 22:00 11/01/18 22:02 Trazodone Hcl [Trazodone Hcl] PO 150 mg HS DON Administration Olanzapine 20 mg 10/10/18 22:00 11/01/18 21:57 Zyprexa - PO 20 mg HS DON Administration Olanzapine 10 mg 10/11/18 10:00 11/02/18 10:05 Zyprexa - PO 10 mg DAILY DON Administration Pantoprazole Sodium 40 mg 10/08/18 10:00 11/02/18 10:02 Protonix - PO 40 mg DAILY DON Administration Multivit/Folic Acid/Iron 1 tab 10/08/18 10:00 11/02/18 10:03 Vitamins (Sjr) - PO 1 tab DAILY DON Administration Pseudoephedrine/Triprolidine 1 combo 10/07/18 14:56 Actifed - PO TID PRN NASAL CONGESTION Senna 1 tab 10/07/18 22:00 11/01/18 21:58 Senna - PO 1 tab HS DON Administration Sucralfate 1 gm 10/07/18 22:00 11/02/18 17:04 Carafate - PO 1 gm ACHS DON Administration Thiamine HCl 100 mg 10/07/18 22:00 11/01/18 21:57 Vitamin B1 - PO 100 mg HS DON Administration Medication(s) Change(s): No. Current Side Effect: No Lab tests ordered: No Lab tests reviewed: Yes Provider note:: Patient will complete the inpatient rehabilitation program on . He has met his treatment goals and will continue to address his issues at the [facility] outpatient clinic. Through participation of this program patient was able to learn the importance of changing his behavior and the need for bettter structure in his life. 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 A 30 day prescription of depakote 750mg daily + Depakote 1000mg HS + Remeron 15mg HS + trazodone 150mg HS + Zyprexa 10mg daily + Zyprexa 20mg HS + Cymbalta 60mg daily + Vistaril 50mg q6h for anxiety will be sent to patient's pharmacy at [facility] store at [address] [place] [address], [facility]. Patient is stable for discharge on 11/03/18. Total face to face time:: 35 Mental Status Exam - Mental Status Exam Alert and Oriented to: Time, Place, Person Cognitive Function: Good Patient Appearance: Well Groomed Mood: Hopeful Affect: Appropriate Patient Behavior: Appropriate, Cooperative Speech Pattern: Clear, Appropriate Voice Loudness: Normal Thought Process: Intact, Goal Oriented Thought Disorder: Not Present Hallucinations: Denies Suicidal Ideation: Denies Homicidal Ideation: Denies Insight/Judgement: Good Sleep: Well Appetite: Good Muscle strength/Tone: Normal Gait/Station: Normal Psychiatric Treatment Plan - Problem List (1) Alcohol dependence Current Visit: Yes (2) Alcohol-induced anxiety disorder Current Visit: Yes (3) Alcohol-induced sleep disorder Current Visit: Yes (4) Bipolar disorder Current Visit: Yes (5) Nicotine dependence Current Visit: No Qualifiers: Nicotine product type: cigarettes Substance use status: in withdrawal Qualified Code(s): F17.213 - Nicotine dependence, cigarettes, with withdrawal Comment: .
[2018-11-02] MEDS: OLANZapine 10 MG TABLET PO SCH (21:54)
[2018-11-02] MEDS: MIRTAZAPINE 15 MG PO SCH (21:54)
[2018-11-02] MEDS: THIAMINE HCL 100 MG TABLET (FP) PO SCH (21:55)
[2018-11-02] MEDS: DIVALPROEX SODIUM 500 MG PO SCH (21:55)
[2018-11-02] MEDS: LIDOCAINE PATCH REMOVAL MC SCH (21:57)
[2018-11-02] MEDS: TRAZODONE HCL PO SCH (21:57)
[2018-11-02] MEDS: SENNOSIDES 8.6MG TABLET (FP) PO SCH (21:57)
[2018-11-03] MEDS: hydrOXYzine PAMOATE 50 MG CAPSULE (FP) PO PRN ×2 (06:19→09:14)
[2018-11-03] MEDS: CYCLOBENZAPRINE HCL 5 MG TABLET PO PRN (06:19)
[2018-11-03] MEDS: guaiFENesin/D-METHORPHAN HB 10 ML UNIT-DOSE CUPS PO PRN (06:19)
[2018-11-03] MEDS: SUCRALFATE 1 GM TABLET (FP) PO SCH (06:20)
[2018-11-03] MEDS: GABAPENTIN 400 MG CAPSULE (FP) PO SCH (06:20)
[2018-11-03] MEDS: DOCUSATE SODIUM 100 MG CAPSULE (FP) PO SCH (06:20)
[2018-11-03 06:49] VITALS: BP 129/71; PULSE 90; TEMP 97.8
[2018-11-03] MEDS ORDERED: PT OWN MED DRAWER 7, Y5N ONE (08:29)
[2018-11-03] MEDS: PANTOPRAZOLE 40 MG TABLET (FP) PO SCH (09:14)
[2018-11-03] MEDS: amLODIPine BESYLATE 5 MG TABLET (FP) PO SCH (09:14)
[2018-11-03] MEDS: OLANZAPINE 10 MG PO SCH (09:14)
[2018-11-03] MEDS: PRENATAL VITAMINS W/ FOLIC ACID TABLET (FP) PO SCH (09:14)
[2018-11-03] MEDS: LIDOCAINE 5% TOPICAL PATCH TP SCH (09:15)
[2018-11-03] MEDS: DIVALPROEX SODIUM PO SCH (09:15)
[2018-11-03] MEDS: FLUTICASONE PROP 0.05% 16 GM NASAL SPRAY NS SCH (09:15)
[2018-11-03] MEDS: CLOTRIMAZOLE 1% CREAM 15 GM TUBE TP SCH (09:15)
[2018-11-03] MEDS: DULoxetine HCL 30 MG CAPSULE.DR (FP) PO SCH (09:15)
[2018-11-03] MEDS: NICOTINE 21 MG/24 HOURS TOPICAL PATCH TD SCH (09:16)
[2018-11-03] MEDS: NON-FORMULARY MED TP SCH (09:16)
== END 2018-11-03 09:35 | disposition home or self-care (01) | DRG 895 ==
LOC: YASAS 12:37 → Y3W 15:17
PROVIDERS: ADMIT Psychiatry & Neurology Psychiatry; ATTEND Psychiatry & Neurology Psychiatry
PROC: HZ42ZZZ Group Counseling for Substance Abuse Treatment, Cognitive-Behavioral (ICD-10-PCS; principal; 2018-10-07)
DX: F10.20 Alcohol dependence, uncomplicated (principal); F17.213 Nicotine dependence, cigarettes, with withdrawal; F10.280 Alcohol dependence with alcohol-induced anxiety disorder; F10.282 Alcohol dependence with alcohol-induced sleep disorder; F31.9 Bipolar disorder, unspecified; F32.9 Major depressive disorder, single episode, unspecified; I10 Essential (primary) hypertension; K21.9 Gastro-esophageal reflux disease without esophagitis; G47.00 Insomnia, unspecified; M54.42 Lumbago with sciatica, left side; R63.4 Abnormal weight loss; Z68.29 Body mass index [BMI] 29.0-29.9, adult; Z87.19 Personal history of other diseases of the digestive system
CPT/HCPCS: 36415; 80053; 80164; 81003; 85027; 86593; 93005; 93010